=== PATIENT | male | born 1970 | race American Indian/Alaskan Native ===

== ENCOUNTER 2017-09-13 23:32 | Inpatient (IN) | payer BC, OTHER ==
[2017-09-14 00:23] LABS: Basophils % (Auto) 0.6 % (0.0-1.8); Eosinophils # (Auto) 0.1 K/mm3 (0.0-0.4); Eosinophils % (Auto) 1.4 % (0.0-4.3); Hemoglobin 13.2 gm/dl (11.8-15.2); Lymphocytes # (Auto) 0.5 K/mm3 (1.2-5.4); Lymphocytes % (Auto) 7.4 % (13.4-35.0); Mean Corpuscular HGB Conc 33 % (32-34); Mean Corpuscular Hemoglobin 31 pg (28-32); Mean Corpuscular Volume 94 fl (84-94); Monocytes % (Auto) 15.7 % (0.0-7.3); Platelet Count 185 K/mm3 (140-440); Red Blood Count 4.27 M/mm3 (3.65-5.03); Red Cell Distribution Width 13.4 % (13.2-15.2)
[2017-09-14 00:46] LABS: Alanine Aminotransferase 31 units/L (7-56); Albumin 3.9 g/dL (3.9-5); BUN/Creatinine Ratio 11; Blood Urea Nitrogen 12 mg/dL (9-20); Calcium 8.2 mg/dL (8.4-10.2); Hemolysis Index 9
--- NOTE | 2017-09-14 01:31 | XRay Report ---
FINAL REPORT EXAM: XR CHEST ROUTINE 2V HISTORY: cough and congestion TECHNIQUE: 2 views of the chest. PRIORS: None. FINDINGS: The cardiomediastinal silhouette appears normal. The lungs are clear. The bones and soft tissues are unremarkable. IMPRESSION: No evidence of acute cardiopulmonary disease
--- NOTE | 2017-09-14 01:36 | Cat Scan Report ---
FINAL REPORT EXAM: CT HEAD/BRAIN WO CON HISTORY: SEIZURE TECHNIQUE: CT was performed from the foramen magnum through the vertex in the axial plane without the use of intravenous contrast. PRIORS: None. FINDINGS: The mccarthy/white matter attenuation pattern is normal. There is no mass lesion or mass effect. There are no abnormal extra-axial fluid collections. There is no evidence of acute intracranial hemorrhage or infarct. The ventricles are of normal size and configuration. The skull and orbits are unremarkable. There is mild patchy mucosal thickening in the bilateral ethmoid air cells.. IMPRESSION: Normal CT of the head.
[2017-09-14] MEDS ORDERED: KEPPRA 1,000 MG/NS 0.75% 100ML 1,000 MG/100 ML BAG IV ONE (02:29)
[2017-09-14] MEDS ORDERED: TESSALON PERLES PO ONE (02:40)
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
[2017-09-14] MEDS ORDERED: ASPIRIN PO ONE (02:49)
[2017-09-14 02:58] LABS: Creatine Kinase MB 4.1 ng/mL (0.0-4.0)
[2017-09-14] MEDS ORDERED: SODIUM CHLORIDE FLUSH SYRINGE 10 ML IV PRN (05:54)
[2017-09-14] MEDS ORDERED: ZOFRAN IV PRN (05:54)
[2017-09-14] MEDS ORDERED: ATIVAN IV PRN (06:00)
--- NOTE | 2017-09-14 06:05 | History and Physical Report ---
History of Present Illness Date of examination: 09/14/17 History of present illness: 46-year-old man with a history of hypothyroidism, obesity, emergency room because while he was at home and at bedside reported that the son stated that he had a seizure and later a syncopal episode. He states he develop a cough productive of yellow phlegm, he was coughing so much in the emergency room he had a syncopal episode 2 for 2 minutes. Also complaining of chest pain has been ongoing over the last 1 month, located in the left chest, worse with cough, feels like someone hit him in the chest, intermittent for a few seconds, no radiation, intensity 5/10. Denies nausea vomiting, palpitation or diaphoresis, admits to shortness of breath Review of systems Constitutional: no weight loss, chills Ears, eyes, nose, mouth and throat: no nasal congestion, no nasal discharge, no sinus pressure, no vision change, no red eye. Neck: No neck pain or rigidity. Cardiovascular: no palpitations Respiratory:+ cough, shortness of breath Gastrointestinal: no abdominal pain, hematochezia Genitourinary : no dysuria, frequency , no hematuria Musculoskeletal: no joint swelling or muscle ache Integumentary: no rash, no pruritis Neurological: no parathesias, no numbness, no focal weakness Endocrine: no cold or heat intolerance, no polyuria or polydipsia Hematologic/Lymphatic: no easy bruising, no easy bleeding, no gland swelling Allergic/Immunologic: no urticaria, no angioedema. PAST MEDICAL HISTORY: Hypothyroidism, obesity PAST SURGICAL HISTORY: None SOCIAL HISTORY: Denies alcohol, tobacco, drugs FAMILY HISTORY: Hypertension Medications and Allergies Allergies Allergy/AdvReac Type Severity Reaction Status Date / Time No Known Allergies Allergy Verified 06/22/13 00:50 Home Medications Medication Instructions Recorded Confirmed Last Taken Type Ibuprofen [Motrin] 800 mg PO TID PRN #20 tablet 06/21/13 Unknown Rx Active Meds: Active Medications Acetaminophen (Tylenol) 650 mg PO Q4H PRN PRN Reason: Pain MILD(1-3)/Fever >100.5/GARAY Enoxaparin Sodium (Lovenox) 30 mg SUB-Q QDAY DALLIN Lorazepam (Ativan) 1 mg IV Q4H PRN PRN Reason: Seizures Ondansetron HCl (Zofran) 4 mg IV Q8H PRN PRN Reason: Nausea And Vomiting Sodium Chloride (Sodium Chloride Flush Syringe 10 Ml) 10 ml IV BID DALLIN Sodium Chloride (Sodium Chloride Flush Syringe 10 Ml) 10 ml IV PRN PRN PRN Reason: LINE FLUSH Exam - Physical Exam Narrative exam: Gen. appearance: Patient lying in bed, no apparent distress HEENT: Normocephalic, atraumatic, pupils equally round and reactive to light, extraocular movement intact, and no sclericterus,. No JVD or thyromegaly or nodule,neck supple, no carotid bruit ,mucous membranes moist, no exudate or erythema Heart: S1, S2, regular rate and rhythm Lungs: Clear to auscultation bilaterally, breathing comfortable Abdomen: Positive bowel sounds, nontender, nondistended, no organomegaly Extremity: No edema, cyanosis, clubbing Skin: No rash, nodules, warm, dry Neuro: Oriented 3, cranial nerves II-12 intact, speech is fluent, motor and sensory intact - Constitutional Vitals: Temp Pulse Resp BP Pulse Ox 98.5 F 113 H 20 151/88 94 09/13/17 23:33 09/13/17 23:33 09/14/17 01:47 09/13/17 23:33 09/14/17 01:47 Results - Labs CBC & Chem 7: 09/14/17 00:10 09/14/17 00:10 Labs: Abnormal lab results 09/14/17 09/14/17 09/14/17 Range/Units 00:10 00:10 02:29 Lymph % (Auto) 7.4 L (13.4-35.0) % [place] % (Auto) 15.7 H (0.0-7.3) % Lymph # 0.5 L (1.2-5.4) K/mm3 [place] # 1.0 H (0.0-0.8) K/mm3 Seg Neutrophils % 74.9 H (40.0-70.0) % D-Dimer (0-234) ng/mlDDU Chloride 96.0 L (98-107) mmol/L Carbon Dioxide 31 H (22-30) mmol/L Glucose 142 H (75-100) mg/dL Calcium 8.2 L (8.4-10.2) mg/dL Total Creatine Kinase 417 H (55-170) units/L CK-MB (CK-2) 4.1 H (0.0-4.0) ng/mL 09/14/17 Range/Units 04:14 Lymph % (Auto) (13.4-35.0) % [place] % (Auto) (0.0-7.3) % Lymph # (1.2-5.4) K/mm3 [place] # (0.0-0.8) K/mm3 Seg Neutrophils % (40.0-70.0) % D-Dimer 259.63 H (0-234) ng/mlDDU Chloride (98-107) mmol/L Carbon Dioxide (22-30) mmol/L Glucose (75-100) mg/dL Calcium (8.4-10.2) mg/dL Total Creatine Kinase (55-170) units/L CK-MB (CK-2) (0.0-4.0) ng/mL - Imaging and Cardiology EKG: image reviewed Chest x-ray: image reviewed CT Scan - head: report reviewed Assessment and Plan Assessment Syncope Chest pain Seizure Hypothyroidism Obesity Plan Admit to medicine Check cardiac enzymes, d-dimer positive, check CT chest, rule out PE Will need stress test if CT chest is negative IV Ativan for seizure DVT prophylaxis
[2017-09-14] MEDS: LOVENOX SUB-Q SCH (09:58)
[2017-09-14] MEDS: SODIUM CHLORIDE FLUSH SYRINGE 10 ML IV SCH (09:59)
--- NOTE | 2017-09-14 11:00 | Cat Scan Report ---
CTA CHEST: HISTORY: chest pain. COMPARISON: none. TECHNIQUE: Helical CT in 1.25mm intervals following IV contrast. Pulmonary embolus protocol. Sagittal and coronal reformatted images. No three-dimensional postprocessing images were available at the time of dictation. FINDINGS: Contrast bolus is satisfactory. No pulmonary embolus is identified. Thyroid gland: Normal. Tracheobronchial tree: Normal. Esophagus: Normal. Heart: Normal. Pericardium: Normal. Mediastinum: Normal. Lung Shaikh: normal. Pleural Spaces: Normal. Musculoskeletal: Normal. IMPRESSION: No evidence for pulmonary embolus. Unremarkable CT chest with contrast.
[2017-09-14 11:31] LABS: Creatine Kinase MB 5.7 ng/mL (0.0-4.0)
[2017-09-14 12:25] LABS: Creatine Kinase MB 5.7 ng/mL (0.0-4.0)
--- NOTE | 2017-09-14 16:04 | Event Note ---
Date: 09/14/17
[2017-09-14] MEDS: TYLENOL PO PRN (20:23)
[2017-09-15 06:18] LABS: Hematocrit 42.3 % (35.5-45.6); Hemoglobin 13.6 gm/dl (11.8-15.2); Mean Corpuscular HGB Conc 32 % (32-34); Mean Corpuscular Hemoglobin 31 pg (28-32); Mean Corpuscular Volume 95 fl (84-94); Platelet Count 184 K/mm3 (140-440); Red Blood Count 4.44 M/mm3 (3.65-5.03); Red Cell Distribution Width 13.5 % (13.2-15.2)
[2017-09-15 06:46] LABS: BUN/Creatinine Ratio 10; Blood Urea Nitrogen 10 mg/dL (9-20); Calcium 8.3 mg/dL (8.4-10.2); Hemolysis Index 11
[2017-09-15 08:22] LABS: Band Neutrophils # (Manual) 0.2 K/mm3; Basophils % (Manual) 0 % (0.0-1.8); Eosinophils % (Manual) 0 % (0.0-4.3); Platelet Estimate Consistent w Auto; RBC Morphology Normal; Total Cells Counted 100
[2017-09-15] MEDS: LOVENOX SUB-Q SCH (15:00)
[2017-09-15] MEDS: SODIUM CHLORIDE FLUSH SYRINGE 10 ML IV SCH ×3 (15:07→21:10)
--- NOTE | 2017-09-16 07:36 | Progress Note ---
Assessment and Plan The high probability of a clinically significant, sudden or life threatening deterioration of the [Pulmonary, cadiac, renal] system(s) required my full and direct attention, intervention and personal management. The aggregate critical care time was [35] minutes. This time is in addition to time spent performing reported procedures but includes the following: [x] Data Review and interpretation [x] Patient assessment and monitoring of vital signs [x] Documentation [x] Medication orders and management - Patient Problems (1) Acute respiratory failure with hypercapnia Current Visit: Yes Status: Acute Plan to address problem: Patient initiated on IV Steroids Bipap IV abx and Duonebs (2) COPD with exacerbation Current Visit: Yes Status: Acute Plan to address problem: As above (3) HIEN (obstructive sleep apnea) Current Visit: Yes Status: Chronic Plan to address problem: Eval as outpatient (4) Morbid obesity Current Visit: Yes Status: Chronic (5) DVT prophylaxis Current Visit: Yes Status: Acute Plan to address problem: On Heparin Subjective Date of service: 09/15/17 (Late entry) Principal diagnosis: Acute respiratory failure with Hypercapnia Interval history: Patient became very somnolent High CO2 levels on ABG Objective - Constitutional Vitals: Vital Signs - 12hr 09/15/17 09/15/17 09/15/17 19:47 20:00 20:30 Temperature 100.8 F H Pulse Rate 95 H 97 H 94 H Pulse Rate [ Apical] Respiratory 24 22 21 Rate Blood Pressure 89/50 118/66 94/56 O2 Sat by Pulse 100 100 99 Oximetry 09/15/17 09/15/17 09/15/17 21:00 21:28 21:29 Temperature Pulse Rate 93 H 73 73 Pulse Rate [ Apical] Respiratory 19 Rate Blood Pressure 113/63 O2 Sat by Pulse 100 Oximetry 09/15/17 09/15/17 09/15/17 21:30 22:00 22:06 Temperature Pulse Rate 95 H 91 H 88 Pulse Rate [ Apical] Respiratory 24 21 20 Rate Blood Pressure 133/86 93/58 93/58 O2 Sat by Pulse 100 96 95 Oximetry 09/15/17 09/15/17 09/15/17 22:30 23:00 23:13 Temperature Pulse Rate 96 H 93 H 66 Pulse Rate [ Apical] Respiratory 20 19 20 Rate Blood Pressure 108/55 119/65 119/65 O2 Sat by Pulse 94 99 92 Oximetry 09/15/17 09/16/17 09/16/17 23:30 00:00 00:30 Temperature 100.7 F H Pulse Rate 88 86 95 H Pulse Rate [ 73 Apical] Respiratory 22 19 18 Rate Blood Pressure 85/36 83/37 103/67 O2 Sat by Pulse 87 90 93 Oximetry 09/16/17 09/16/17 09/16/17 01:00 01:30 02:00 Temperature Pulse Rate 93 H 98 H 99 H Pulse Rate [ Apical] Respiratory 18 24 19 Rate Blood Pressure 98/56 116/68 122/75 O2 Sat by Pulse 95 91 93 Oximetry 09/16/17 09/16/17 09/16/17 02:30 03:00 03:30 Temperature Pulse Rate 95 H 95 H 94 H Pulse Rate [ Apical] Respiratory 18 19 19 Rate Blood Pressure 119/69 112/70 108/61 O2 Sat by Pulse 93 95 95 Oximetry 09/16/17 09/16/17 09/16/17 03:33 04:00 04:30 Temperature 99.2 F Pulse Rate 93 H 92 H 88 Pulse Rate [ 93 H Apical] Respiratory 19 19 18 Rate Blood Pressure 112/70 115/68 114/64 O2 Sat by Pulse 95 98 95 Oximetry 09/16/17 09/16/17 09/16/17 05:00 05:30 06:00 Temperature Pulse Rate 91 H 91 H 91 H Pulse Rate [ 90 Apical] Respiratory 18 18 18 Rate Blood Pressure 110/55 109/62 O2 Sat by Pulse 95 95 98 Oximetry General appearance: Present: no acute distress, well-nourished - EENT Eyes: PERRL, EOM intact ENT: hearing intact, clear oral mucosa Ears: bilateral: normal - Neck Neck: supple, normal ROM - Respiratory Respiratory effort: normal Respiratory: bilateral: CTA - Breasts Breasts: normal - Cardiovascular Rhythm: regular Heart Sounds: Present: S1 & S2. Absent: gallop, rub Extremities: pulses intact, No edema, normal color, Full ROM - Gastrointestinal General gastrointestinal: Present: soft, non-tender, non-distended, normal bowel sounds - Genitourinary Male genitourinary: normal - Integumentary Integumentary: clear, warm, dry - Musculoskeletal Musculoskeletal: 1, strength equal bilaterally - Neurologic Neurologic: moves all extremities - Psychiatric Psychiatric: memory intact, appropriate mood/affect, intact judgment & insight - Labs CBC & Chem 7: 09/15/17 05:09 09/15/17 05:09 Labs: Abnormal lab results 09/15/17 09/15/17 09/15/17 Range/Units 05:09 15:28 15:34 Monocytes % (Manual) 21.0 H (0.0-7.3) % Lymphocytes # (Manual) 1.0 L (1.2-5.4) K/mm3 Monocytes # (Manual) 1.3 H (0.0-0.8) K/mm3 POC ABG pH 7.193 L (7.35-7.45) POC ABG pCO2 92.3 H (35-45) POC ABG pO2 56 L (80-105) POC Glucose 159 H (70-105) 09/15/17 09/15/17 09/15/17 Range/Units 16:13 17:58 21:25 Monocytes % (Manual) (0.0-7.3) % Lymphocytes # (Manual) (1.2-5.4) K/mm3 Monocytes # (Manual) (0.0-0.8) K/mm3 POC ABG pH 7.241 L 7.257 L 7.288 L (7.35-7.45) POC ABG pCO2 78.2 H 74.5 H 71.4 H (35-45) POC ABG pO2 60 L 66 L (80-105) POC Glucose (70-105)
[2017-09-16 08:49] LABS: BUN/Creatinine Ratio 13; Blood Urea Nitrogen 15 mg/dL (9-20); Hemolysis Index 2
[2017-09-16] MEDS: LOVENOX SUB-Q SCH ×2 (09:08→22:45)
[2017-09-16] MEDS: SODIUM CHLORIDE FLUSH SYRINGE 10 ML IV SCH (09:09)
--- NOTE | 2017-09-16 09:12 | Progress Note ---
Assessment and Plan Assessment and plan: Acute respiratory failure with hypercapnea. He is on BIPAP. Pulm following. Sleep apnea. Now on BIPAP. Was on CPAP at home. Repeat ABG shows improvement.. Syncope. Obtain Echocardiogram Hypothyroidism. Continue Levothyroxine DVT prophylaxis with Lovenox. Full code status. History Interval history: Feels a little better, Less shortness of breath, Still on BIPAP Hungry-wants to eat Hospitalist Physical - Physical exam Narrative exam: General:Not in acute distress,morbidly obese, BIPAP on HEENT:Normocephalic, atraumatic Lungs: Bilateral rhonchi, decreased breath sounds Heart:S1 and S2 regular, no murmurs, rubs or gallop Abd: soft, non tender, non distended, normal bowel sounds Ext:Bilateral lower ext edema, no clubbing or cyanosis Neuro:Awake,alert,oriented x 3, moves all extremities, Psych:Normal mood - Constitutional Vitals: Temp Pulse Resp BP Pulse Ox 98.7 F 98 H 18 119/70 98 09/16/17 08:00 09/16/17 08:35 09/16/17 08:35 09/16/17 08:35 09/16/17 08:35 General appearance: Present: no acute distress Results - Labs CBC & Chem 7: 09/15/17 05:09 09/16/17 07:06 Labs: Laboratory Last Values WBC 6.0 K/mm3 (4.5-11.0) 09/15/17 05:09 RBC 4.44 M/mm3 (3.65-5.03) 09/15/17 05:09 Hgb 13.6 gm/dl (11.8-15.2) 09/15/17 05:09 Hct 42.3 % (35.5-45.6) 09/15/17 05:09 MCV 95 fl (84-94) H 09/15/17 05:09 MCH 31 pg (28-32) 09/15/17 05:09 MCHC 32 % (32-34) 09/15/17 05:09 RDW 13.5 % (13.2-15.2) 09/15/17 05:09 Plt Count 184 K/mm3 (140-440) 09/15/17 05:09 Lymph % (Auto) 7.4 % (13.4-35.0) L 09/14/17 00:10 Scott % (Auto) Community Marketing Manager 09/15/17 05:09 Eos % (Auto) 1.4 % (0.0-4.3) 09/14/17 00:10 Baso % (Auto) 0.6 % (0.0-1.8) 09/14/17 00:10 Lymph # 0.5 K/mm3 (1.2-5.4) L 09/14/17 00:10 Scott # 1.0 K/mm3 (0.0-0.8) H 09/14/17 00:10 Eos # 0.1 K/mm3 (0.0-0.4) 09/14/17 00:10 Baso # 0.0 K/mm3 (0.0-0.1) 09/14/17 00:10 Add Manual Diff Complete 09/15/17 05:09 Total Counted 100 09/15/17 05:09 Seg Neutrophils % 74.9 % (40.0-70.0) H 09/14/17 00:10 Seg Neuts % (Manual) 58.0 % (40.0-70.0) 09/15/17 05:09 Band Neutrophils % 4.0 % 09/15/17 05:09 Lymphocytes % (Manual) 17.0 % (13.4-35.0) 09/15/17 05:09 Reactive Lymphs % (Man) 0 % 09/15/17 05:09 Monocytes % (Manual) 21.0 % (0.0-7.3) H 09/15/17 05:09 Eosinophils % (Manual) 0 % (0.0-4.3) 09/15/17 05:09 Basophils % (Manual) 0 % (0.0-1.8) 09/15/17 05:09 Metamyelocytes % 0 % 09/15/17 05:09 Myelocytes % 0 % 09/15/17 05:09 Promyelocytes % 0 % 09/15/17 05:09 Blast Cells % 0 % 09/15/17 05:09 Nucleated RBC % Not Reportable 09/15/17 05:09 Seg Neutrophils # 4.6 K/mm3 (1.8-7.7) 09/14/17 00:10 Seg Neutrophils # Man 3.5 K/mm3 (1.8-7.7) 09/15/17 05:09 Band Neutrophils # 0.2 K/mm3 09/15/17 05:09 Lymphocytes # (Manual) 1.0 K/mm3 (1.2-5.4) L 09/15/17 05:09 Abs React Lymphs (Man) 0.0 K/mm3 09/15/17 05:09 Monocytes # (Manual) 1.3 K/mm3 (0.0-0.8) H 09/15/17 05:09 Eosinophils # (Manual) 0.0 K/mm3 (0.0-0.4) 09/15/17 05:09 Basophils # (Manual) 0.0 K/mm3 (0.0-0.1) 09/15/17 05:09 Metamyelocytes # 0.0 K/mm3 09/15/17 05:09 Myelocytes # 0.0 K/mm3 09/15/17 05:09 Promyelocytes # 0.0 K/mm3 09/15/17 05:09 Blast Cells # 0.0 K/mm3 09/15/17 05:09 WBC Morphology Not Reportable 09/15/17 05:09 Hypersegmented Neuts Not Reportable 09/15/17 05:09 Hyposegmented Neuts Not Reportable 09/15/17 05:09 Hypogranular Neuts Not Reportable 09/15/17 05:09 Smudge Cells Not Reportable 09/15/17 05:09 Toxic Granulation Not Reportable 09/15/17 05:09 Toxic Vacuolation Not Reportable 09/15/17 05:09 Dohle Bodies Not Reportable 09/15/17 05:09 Pelger-Huet Anomaly Not Reportable 09/15/17 05:09 Chely Rods Not Reportable 09/15/17 05:09 Platelet Estimate Consistent w auto 09/15/17 05:09 Clumped Platelets Not Reportable 09/15/17 05:09 Plt Clumps, EDTA Not Reportable 09/15/17 05:09 Large Platelets Not Reportable 09/15/17 05:09 Giant Platelets Not Reportable 09/15/17 05:09 Platelet Satelliting Not Reportable 09/15/17 05:09 Plt Morphology Comment Not Reportable 09/15/17 05:09 RBC Morphology Normal 09/15/17 05:09 Dimorphic RBCs Not Reportable 09/15/17 05:09 Polychromasia Not Reportable 09/15/17 05:09 Hypochromasia Not Reportable 09/15/17 05:09 Poikilocytosis Not Reportable 09/15/17 05:09 Anisocytosis Not Reportable 09/15/17 05:09 Microcytosis Not Reportable 09/15/17 05:09 Macrocytosis Not Reportable 09/15/17 05:09 Spherocytes Not Reportable 09/15/17 05:09 Pappenheimer Bodies Not Reportable 09/15/17 05:09 Sickle Cells Not Reportable 09/15/17 05:09 Target Cells Not Reportable 09/15/17 05:09 Tear Drop Cells Not Reportable 09/15/17 05:09 Ovalocytes Not Reportable 09/15/17 05:09 Helmet Cells Not Reportable 09/15/17 05:09 [place] Bodies Not Reportable 09/15/17 05:09 [place] Rings Not Reportable 09/15/17 05:09 [place] Cells Not Reportable 09/15/17 05:09 Bite Cells Not Reportable 09/15/17 05:09 Crenated Cell Not Reportable 09/15/17 05:09 Elliptocytes Not Reportable 09/15/17 05:09 Acanthocytes (Spur) Not Reportable 09/15/17 05:09 Rouleaux Not Reportable 09/15/17 05:09 Hemoglobin C Crystals Not Reportable 09/15/17 05:09 Schistocytes Not Reportable 09/15/17 05:09 Malaria parasites Not Reportable 09/15/17 05:09 Curt Bodies Not Reportable 09/15/17 05:09 Hem Pathologist Commnt No 09/15/17 05:09 D-Dimer 259.63 ng/mlDDU (0-234) H 09/14/17 04:14 POC ABG pH 7.366 (7.35-7.45) 09/16/17 08:32 POC ABG pCO2 60.4 (35-45) H 09/16/17 08:32 POC ABG pO2 79 (80-105) L 09/16/17 08:32 POC ABG HCO3 34.6 09/16/17 08:32 POC ABG Total CO2 36 09/16/17 08:32 POC ABG O2 Sat 95 09/16/17 08:32 POC ABG Base Excess 9 09/16/17 08:32 FiO2 60 % 09/16/17 08:32 Sodium 136 mmol/L (137-145) L 09/16/17 07:06 Potassium 4.3 mmol/L (3.6-5.0) 09/16/17 07:06 Chloride 91.9 mmol/L (98-107) L 09/16/17 07:06 Carbon Dioxide 35 mmol/L (22-30) H 09/16/17 07:06 Anion Gap 13 mmol/L 09/16/17 07:06 BUN 15 mg/dL (9-20) 09/16/17 07:06 Creatinine 1.2 mg/dL (0.8-1.5) 09/16/17 07:06 Estimated GFR > 60 ml/min 09/16/17 07:06 BUN/Creatinine Ratio 13 % 09/16/17 07:06 Glucose 114 mg/dL (75-100) H 09/16/17 07:06 POC Glucose 159 (70-105) H 09/15/17 15:34 Calcium 8.0 mg/dL (8.4-10.2) L 09/16/17 07:06 Magnesium 1.70 mg/dL (1.7-2.3) 09/14/17 02:30 Total Bilirubin 0.30 mg/dL (0.1-1.2) 09/14/17 00:10 AST 23 units/L (5-40) 09/14/17 00:10 ALT 31 units/L (7-56) 09/14/17 00:10 Alkaline Phosphatase 67 units/L (35-129) 09/14/17 00:10 Total Creatine Kinase 769 units/L (55-170) H 09/14/17 11:53 CK-MB (CK-2) 5.7 ng/mL (0.0-4.0) H 09/14/17 11:53 CK-MB (CK-2) Rel Index 0.7 (0-4) 09/14/17 11:53 Troponin T < 0.010 ng/mL (0.00-0.029) 09/14/17 23:38 Total Protein 6.8 g/dL (6.3-8.2) 09/14/17 00:10 Albumin 3.9 g/dL (3.9-5) 09/14/17 00:10 Albumin/Globulin Ratio 1.3 % 09/14/17 00:10
--- NOTE | 2017-09-16 09:57 | Consultation ---
History of Present Illness Consult date: 09/16/17 Requesting physician: MODESTA POMPA Reason for consult: obstructive sleep apnea, other (Hypercapnic respiratory failure) History of present illness: 46 y/o male, originally admitted for syncope and seizure, developed hypercapnic respiratory failure on yesterday requiring continous bipap therapy and transfer to ICU. Patient is awake and alert now. Admits to underlying diagnosis of HIEN/ OHS and is readily noncompliant with therapy at home. Family at bedside. Vitals stable. Past History Past Medical History: other (HIEN/OHS) Past Surgical History: No surgical history Social history: no significant social history Family history: no significant family history Medications and Allergies Allergies Allergy/AdvReac Type Severity Reaction Status Date / Time No Known Allergies Allergy Verified 06/22/13 00:50 Home Medications Medication Instructions Recorded Confirmed Last Taken Type No Known Home Medications [No 09/14/17 09/14/17 Unknown History Reported Home Medications] Active Meds: Active Medications Acetaminophen (Tylenol) 650 mg PO Q4H PRN PRN Reason: Pain MILD(1-3)/Fever >100.5/GARAY Last Admin: 09/14/17 20:23 Dose: 650 mg Enoxaparin Sodium (Lovenox) 40 mg SUB-Q QDAY [facility] Last Admin: 09/16/17 09:08 Dose: 40 mg Ondansetron HCl (Zofran) 4 mg IV Q8H PRN PRN Reason: Nausea And Vomiting Sodium Chloride (Sodium Chloride Flush Syringe 10 Ml) 10 ml IV BID [facility] Last Admin: 09/16/17 09:09 Dose: 10 ml Sodium Chloride (Sodium Chloride Flush Syringe 10 Ml) 10 ml IV PRN PRN PRN Reason: LINE FLUSH Review of Systems All systems: negative Physical Examination Vital signs: Vital Signs Temp Pulse Resp BP Pulse Ox 98.5 F 113 H 18 151/88 94 09/13/17 23:33 09/13/17 23:33 09/13/17 23:33 09/13/17 23:33 09/13/17 23:33 General appearance: no acute distress, alert Neck: supple (large in circumference) Effort: normal Ascultation: Bilateral: diminished breath sounds Percussion: Bilateral: not dull Tactile fremitus: Bilateral: normal Cardiovascular: regular rate and rhythm Gastrointestinal: normoactive bowel sounds, other (obese) Extremities: anasarca Musculoskeletal: no deformities normal mental status, non-focal exam mood appropriate Results - Laboratory Findings CBC and BMP: 09/15/17 05:09 09/16/17 07:06 ABG POC ABG pH 7.366 (7.35-7.45) 09/16/17 08:32 POC ABG pCO2 60.4 (35-45) H 09/16/17 08:32 POC ABG pO2 79 (80-105) L 09/16/17 08:32 POC ABG HCO3 34.6 09/16/17 08:32 POC ABG Total CO2 36 09/16/17 08:32 POC ABG O2 Sat 95 09/16/17 08:32 PT/INR, D-dimer D-Dimer 259.63 ng/mlDDU (0-234) H 09/14/17 04:14 Abnormal lab findings: Abnormal Labs 09/14/17 09/14/17 09/14/17 00:10 00:10 02:29 MCV Lymph % (Auto) 7.4 L [place] % (Auto) 15.7 H Lymph # 0.5 L [place] # 1.0 H Seg Neutrophils % 74.9 H Monocytes % (Manual) Lymphocytes # (Manual) Monocytes # (Manual) D-Dimer POC ABG pH POC ABG pCO2 POC ABG pO2 Sodium Chloride 96.0 L Carbon Dioxide 31 H Glucose 142 H POC Glucose Calcium 8.2 L Total Creatine Kinase 417 H CK-MB (CK-2) 4.1 H 09/14/17 09/14/17 09/14/17 04:14 08:26 11:53 MCV Lymph % (Auto) [place] % (Auto) Lymph # [place] # Seg Neutrophils % Monocytes % (Manual) Lymphocytes # (Manual) Monocytes # (Manual) D-Dimer 259.63 H POC ABG pH POC ABG pCO2 POC ABG pO2 Sodium Chloride Carbon Dioxide Glucose POC Glucose Calcium Total Creatine Kinase 764 H 769 H CK-MB (CK-2) 5.7 H 5.7 H 09/15/17 09/15/17 09/15/17 05:09 05:09 15:28 MCV 95 H Lymph % (Auto) [place] % (Auto) Lymph # [place] # Seg Neutrophils % Monocytes % (Manual) 21.0 H Lymphocytes # (Manual) 1.0 L Monocytes # (Manual) 1.3 H D-Dimer POC ABG pH 7.193 L POC ABG pCO2 92.3 H POC ABG pO2 56 L Sodium Chloride 94.9 L Carbon Dioxide 31 H Glucose 154 H POC Glucose Calcium 8.3 L Total Creatine Kinase CK-MB (CK-2) 09/15/17 09/15/17 09/15/17 15:34 16:13 17:58 MCV Lymph % (Auto) [place] % (Auto) Lymph # [place] # Seg Neutrophils % Monocytes % (Manual) Lymphocytes # (Manual) Monocytes # (Manual) D-Dimer POC ABG pH 7.241 L 7.257 L POC ABG pCO2 78.2 H 74.5 H POC ABG pO2 60 L 66 L Sodium Chloride Carbon Dioxide Glucose POC Glucose 159 H Calcium Total Creatine Kinase CK-MB (CK-2) 09/15/17 09/16/17 09/16/17 21:25 07:06 08:32 MCV Lymph % (Auto) [place] % (Auto) Lymph # [place] # Seg Neutrophils % Monocytes % (Manual) Lymphocytes # (Manual) Monocytes # (Manual) D-Dimer POC ABG pH 7.288 L POC ABG pCO2 71.4 H 60.4 H POC ABG pO2 79 L Sodium 136 L Chloride 91.9 L Carbon Dioxide 35 H Glucose 114 H POC Glucose Calcium 8.0 L Total Creatine Kinase CK-MB (CK-2) - Diagnostic Findings Chest x-ray: image reviewed CT scan - chest: image reviewed Assessment and Plan 46 y/o, morbidly obese male admitted with syncope, transitioned to ICU secondary to hypercapnic respiratory failure. 1. PRN and QHS bipap therapy 2. Ok with giving patient a break now 3. Suggest checking echo to evaluate right sided pressures 4. Will check BNP 5. Weight loss education given. 6. Will watch in ICU for few hours. Was on NC at 3 now up to 5. Unable to get adequate readings on pulse ox. May need to keep again overnight but will reassess.
[2017-09-16 16:30] LABS: Amphetamine Screen,Urine PRESUMPTIVE NEGATIVE; Benzodiazepines Screen,Urine PRESUMPTIVE NEGATIVE; Cannabinoid Screen,Urine PRESUMPTIVE NEGATIVE; Cocaine Screen,Urine PRESUMPTIVE NEGATIVE; Methadone Screen,Urine PRESUMPTIVE NEGATIVE; Opiate Screen,Urine PRESUMPTIVE NEGATIVE
[2017-09-17 04:54] LABS: Hematocrit 39.6 % (35.5-45.6); Hemoglobin 13.3 gm/dl (11.8-15.2); Mean Corpuscular HGB Conc 34 % (32-34); Mean Corpuscular Hemoglobin 31 pg (28-32); Mean Corpuscular Volume 93 fl (84-94); Platelet Count 169 K/mm3 (140-440); Red Blood Count 4.24 M/mm3 (3.65-5.03); Red Cell Distribution Width 13.3 % (13.2-15.2)
[2017-09-17] MEDS: SODIUM CHLORIDE FLUSH SYRINGE 10 ML IV SCH ×2 (05:13→10:53)
[2017-09-17 05:15] LABS: BUN/Creatinine Ratio 13; Blood Urea Nitrogen 16 mg/dL (9-20); Calcium 8.2 mg/dL (8.4-10.2); Hemolysis Index 20
--- NOTE | 2017-09-17 09:52 | Progress Note ---
Assessment and Plan Assessment and plan: Acute respiratory failure with hypercapnea. He was on BIPAP. Off BIPAP, now on Oxygen by NC at 3l/min Pulm following. Sleep apnea. Was on CPAP at home. Repeat ABG shows improvement.. Syncope. Obtain Echocardiogram Seizures. Patient had seizures. Will get MRI Brain Hypothyroidism. Will obtain home med list. DVT prophylaxis with Lovenox. Full code status. Patient stable for Telemetry History Interval history: Feels much better, Less shortness of breath, Off BIPAP Hospitalist Physical - Physical exam Narrative exam: General:Not in acute distress,morbidly obese, Off BIPAP HEENT:Normocephalic, atraumatic Lungs: Bilateral rhonchi, decreased breath sounds Heart:S1 and S2 regular, no murmurs, rubs or gallop Abd: soft, non tender, non distended, normal bowel sounds Ext:Bilateral lower ext edema, no clubbing or cyanosis Neuro:Awake,alert,oriented x 3, moves all extremities, Psych:Normal mood - Constitutional Vitals: Temp Pulse Resp BP Pulse Ox 97.8 F 96 H 14 130/67 93 09/17/17 08:00 09/17/17 08:53 09/17/17 08:30 09/17/17 08:30 09/17/17 09:23 General appearance: Present: no acute distress Results - Labs CBC & Chem 7: 09/17/17 03:53 09/17/17 03:53 Labs: Laboratory Last Values WBC 6.6 K/mm3 (4.5-11.0) 09/17/17 03:53 RBC 4.24 M/mm3 (3.65-5.03) 09/17/17 03:53 Hgb 13.3 gm/dl (11.8-15.2) 09/17/17 03:53 Hct 39.6 % (35.5-45.6) 09/17/17 03:53 MCV 93 fl (84-94) 09/17/17 03:53 MCH 31 pg (28-32) 09/17/17 03:53 MCHC 34 % (32-34) 09/17/17 03:53 RDW 13.3 % (13.2-15.2) 09/17/17 03:53 Plt Count 169 K/mm3 (140-440) 09/17/17 03:53 Lymph % (Auto) 7.4 % (13.4-35.0) L 09/14/17 00:10 [place] % (Auto) Enterprise Sales Executive 09/15/17 05:09 Eos % (Auto) 1.4 % (0.0-4.3) 09/14/17 00:10 Baso % (Auto) 0.6 % (0.0-1.8) 09/14/17 00:10 Lymph # 0.5 K/mm3 (1.2-5.4) L 09/14/17 00:10 [place] # 1.0 K/mm3 (0.0-0.8) H 09/14/17 00:10 Eos # 0.1 K/mm3 (0.0-0.4) 09/14/17 00:10 Baso # 0.0 K/mm3 (0.0-0.1) 09/14/17 00:10 Add Manual Diff Complete 09/15/17 05:09 Total Counted 100 09/15/17 05:09 Seg Neutrophils % 74.9 % (40.0-70.0) H 09/14/17 00:10 Seg Neuts % (Manual) 58.0 % (40.0-70.0) 09/15/17 05:09 Band Neutrophils % 4.0 % 09/15/17 05:09 Lymphocytes % (Manual) 17.0 % (13.4-35.0) 09/15/17 05:09 Reactive Lymphs % (Man) 0 % 09/15/17 05:09 Monocytes % (Manual) 21.0 % (0.0-7.3) H 09/15/17 05:09 Eosinophils % (Manual) 0 % (0.0-4.3) 09/15/17 05:09 Basophils % (Manual) 0 % (0.0-1.8) 09/15/17 05:09 Metamyelocytes % 0 % 09/15/17 05:09 Myelocytes % 0 % 09/15/17 05:09 Promyelocytes % 0 % 09/15/17 05:09 Blast Cells % 0 % 09/15/17 05:09 Nucleated RBC % Not Reportable 09/15/17 05:09 Seg Neutrophils # 4.6 K/mm3 (1.8-7.7) 09/14/17 00:10 Seg Neutrophils # Man 3.5 K/mm3 (1.8-7.7) 09/15/17 05:09 Band Neutrophils # 0.2 K/mm3 09/15/17 05:09 Lymphocytes # (Manual) 1.0 K/mm3 (1.2-5.4) L 09/15/17 05:09 Abs React Lymphs (Man) 0.0 K/mm3 09/15/17 05:09 Monocytes # (Manual) 1.3 K/mm3 (0.0-0.8) H 09/15/17 05:09 Eosinophils # (Manual) 0.0 K/mm3 (0.0-0.4) 09/15/17 05:09 Basophils # (Manual) 0.0 K/mm3 (0.0-0.1) 09/15/17 05:09 Metamyelocytes # 0.0 K/mm3 09/15/17 05:09 Myelocytes # 0.0 K/mm3 09/15/17 05:09 Promyelocytes # 0.0 K/mm3 09/15/17 05:09 Blast Cells # 0.0 K/mm3 09/15/17 05:09 WBC Morphology Not Reportable 09/15/17 05:09 Hypersegmented Neuts Not Reportable 09/15/17 05:09 Hyposegmented Neuts Not Reportable 09/15/17 05:09 Hypogranular Neuts Not Reportable 09/15/17 05:09 Smudge Cells Not Reportable 09/15/17 05:09 Toxic Granulation Not Reportable 09/15/17 05:09 Toxic Vacuolation Not Reportable 09/15/17 05:09 Dohle Bodies Not Reportable 09/15/17 05:09 Pelger-Huet Anomaly Not Reportable 09/15/17 05:09 Chely Rods Not Reportable 09/15/17 05:09 Platelet Estimate Consistent w auto 09/15/17 05:09 Clumped Platelets Not Reportable 09/15/17 05:09 Plt Clumps, EDTA Not Reportable 09/15/17 05:09 Large Platelets Not Reportable 09/15/17 05:09 Giant Platelets Not Reportable 09/15/17 05:09 Platelet Satelliting Not Reportable 09/15/17 05:09 Plt Morphology Comment Not Reportable 09/15/17 05:09 RBC Morphology Normal 09/15/17 05:09 Dimorphic RBCs Not Reportable 09/15/17 05:09 Polychromasia Not Reportable 09/15/17 05:09 Hypochromasia Not Reportable 09/15/17 05:09 Poikilocytosis Not Reportable 09/15/17 05:09 Anisocytosis Not Reportable 09/15/17 05:09 Microcytosis Not Reportable 09/15/17 05:09 Macrocytosis Not Reportable 09/15/17 05:09 Spherocytes Not Reportable 09/15/17 05:09 Pappenheimer Bodies Not Reportable 09/15/17 05:09 Sickle Cells Not Reportable 09/15/17 05:09 Target Cells Not Reportable 09/15/17 05:09 Tear Drop Cells Not Reportable 09/15/17 05:09 Ovalocytes Not Reportable 09/15/17 05:09 Helmet Cells Not Reportable 09/15/17 05:09 [place] Bodies Not Reportable 09/15/17 05:09 [place] Rings Not Reportable 09/15/17 05:09 [place] Cells Not Reportable 09/15/17 05:09 Bite Cells Not Reportable 09/15/17 05:09 Crenated Cell Not Reportable 09/15/17 05:09 Elliptocytes Not Reportable 09/15/17 05:09 Acanthocytes (Spur) Not Reportable 09/15/17 05:09 Rouleaux Not Reportable 09/15/17 05:09 Hemoglobin C Crystals Not Reportable 09/15/17 05:09 Schistocytes Not Reportable 09/15/17 05:09 Malaria parasites Not Reportable 09/15/17 05:09 Curt Bodies Not Reportable 09/15/17 05:09 Hem Pathologist Commnt No 09/15/17 05:09 D-Dimer 259.63 ng/mlDDU (0-234) H 09/14/17 04:14 POC ABG pH 7.366 (7.35-7.45) 09/16/17 08:32 POC ABG pCO2 60.4 (35-45) H 09/16/17 08:32 POC ABG pO2 79 (80-105) L 09/16/17 08:32 POC ABG HCO3 34.6 09/16/17 08:32 POC ABG Total CO2 36 09/16/17 08:32 POC ABG O2 Sat 95 09/16/17 08:32 POC ABG Base Excess 9 09/16/17 08:32 FiO2 60 % 09/16/17 08:32 Sodium 136 mmol/L (137-145) L 09/17/17 03:53 Potassium 4.8 mmol/L (3.6-5.0) 09/17/17 03:53 Chloride 92.8 mmol/L (98-107) L 09/17/17 03:53 Carbon Dioxide 35 mmol/L (22-30) H 09/17/17 03:53 Anion Gap 13 mmol/L 09/17/17 03:53 BUN 16 mg/dL (9-20) 09/17/17 03:53 Creatinine 1.2 mg/dL (0.8-1.5) 09/17/17 03:53 Estimated GFR > 60 ml/min 09/17/17 03:53 BUN/Creatinine Ratio 13 % 09/17/17 03:53 Glucose 101 mg/dL (75-100) H 09/17/17 03:53 POC Glucose 159 (70-105) H 09/15/17 15:34 Calcium 8.2 mg/dL (8.4-10.2) L 09/17/17 03:53 Magnesium 1.70 mg/dL (1.7-2.3) 09/14/17 02:30 Total Bilirubin 0.30 mg/dL (0.1-1.2) 09/14/17 00:10 AST 23 units/L (5-40) 09/14/17 00:10 ALT 31 units/L (7-56) 09/14/17 00:10 Alkaline Phosphatase 67 units/L (35-129) 09/14/17 00:10 Total Creatine Kinase 769 units/L (55-170) H 09/14/17 11:53 CK-MB (CK-2) 5.7 ng/mL (0.0-4.0) H 09/14/17 11:53 CK-MB (CK-2) Rel Index 0.7 (0-4) 09/14/17 11:53 Troponin T < 0.010 ng/mL (0.00-0.029) 09/14/17 23:38 NT-Pro-B Natriuret Pep 65.31 pg/mL (0-450) 09/16/17 07:06 Total Protein 6.8 g/dL (6.3-8.2) 09/14/17 00:10 Albumin 3.9 g/dL (3.9-5) 09/14/17 00:10 Albumin/Globulin Ratio 1.3 % 09/14/17 00:10 Urine Opiates Screen Presumptive negative 09/16/17 16:06 Urine Methadone Screen Presumptive negative 09/16/17 16:06 Ur Barbiturates Screen Presumptive negative 09/16/17 16:06 Ur Phencyclidine Scrn Presumptive negative 09/16/17 16:06 Ur Amphetamines Screen Presumptive negative 09/16/17 16:06 U Benzodiazepines Scrn Presumptive negative 09/16/17 16:06 Urine Cocaine Screen Presumptive negative 09/16/17 16:06 U Marijuana (THC) Screen Presumptive negative 09/16/17 16:06 Drugs of Abuse Note Disclamer 09/16/17 16:06
[2017-09-17] MEDS: LOVENOX SUB-Q SCH ×2 (10:53→22:53)
--- NOTE | 2017-09-17 12:04 | Progress Note ---
Assessment and Plan 46 y/o, morbidly obese male admitted with syncope, transitioned to ICU secondary to hypercapnic respiratory failure. 1. PRN and QHS bipap therapy 2. Weight loss 3. Will need trilogy machine as he will need multiple pressures 4. Stable for transfer to floor. Will continue to follow and follow up right sided pressures of echo if able to be obtained. Subjective Date of service: 09/17/17 Principal diagnosis: Acute respiratory failure with Hypercapnia Interval history: Better again today. Stable on 2-3 liters nasal cannula while awake. Wore Bipap last night. Objective Vital Signs - 12hr 09/17/17 09/17/17 09/17/17 00:08 00:30 00:33 Temperature Pulse Rate 95 H 94 H 95 H Respiratory 13 22 Rate Blood Pressure 137/85 119/83 123/78 O2 Sat by Pulse 92 97 97 Oximetry 09/17/17 09/17/17 09/17/17 01:00 01:30 01:57 Temperature Pulse Rate 89 92 H Respiratory 20 17 20 Rate Blood Pressure 123/78 137/92 O2 Sat by Pulse 99 93 94 Oximetry 09/17/17 09/17/17 09/17/17 02:00 02:30 03:00 Temperature Pulse Rate 86 91 H 90 Respiratory 18 18 19 Rate Blood Pressure 144/97 135/87 149/101 O2 Sat by Pulse 90 90 Oximetry 09/17/17 09/17/17 09/17/17 03:30 04:00 04:30 Temperature 98.7 F Pulse Rate 94 H 90 85 Respiratory 15 18 19 Rate Blood Pressure 125/64 139/80 136/74 O2 Sat by Pulse 95 95 94 Oximetry 09/17/17 09/17/17 09/17/17 05:00 05:30 05:44 Temperature Pulse Rate 88 78 78 Respiratory 19 18 21 Rate Blood Pressure 136/74 129/71 O2 Sat by Pulse 90 90 97 Oximetry 09/17/17 09/17/17 09/17/17 06:00 06:30 07:00 Temperature Pulse Rate 85 79 92 H Respiratory 23 21 15 Rate Blood Pressure 130/74 117/81 117/81 O2 Sat by Pulse 97 97 95 Oximetry 09/17/17 09/17/17 09/17/17 07:30 08:00 08:30 Temperature 97.8 F Pulse Rate 95 H 90 96 H Respiratory 17 18 14 Rate Blood Pressure 135/93 135/93 130/67 O2 Sat by Pulse 91 96 95 Oximetry 09/17/17 09/17/17 08:53 09:23 Temperature Pulse Rate 96 H Respiratory Rate Blood Pressure O2 Sat by Pulse 93 Oximetry Constitutional: no acute distress, alert Neck: supple (large in circumference) Effort: normal Ascultation: Bilateral: diminished breath sounds Percussion: Bilateral: not dull Tactile fremitus: Bilateral: normal Cardiovascular: regular rate and rhythm Gastrointestinal: normoactive bowel sounds, other (obese) Extremities: anasarca Neurologic: normal mental status, non-focal exam Psychiatric: mood appropriate CBC and BMP: 09/17/17 03:53 09/17/17 03:53 ABG, PT/INR, D-dimer: ABG POC ABG pH 7.366 (7.35-7.45) 09/16/17 08:32 POC ABG pCO2 60.4 (35-45) H 09/16/17 08:32 POC ABG pO2 79 (80-105) L 09/16/17 08:32 POC ABG HCO3 34.6 09/16/17 08:32 POC ABG Total CO2 36 09/16/17 08:32 POC ABG O2 Sat 95 09/16/17 08:32 PT/INR, D-dimer D-Dimer 259.63 ng/mlDDU (0-234) H 09/14/17 04:14 Abnormal lab findings: Abnormal Labs 09/14/17 09/14/17 09/14/17 00:10 00:10 02:29 MCV Lymph % (Auto) 7.4 L [place] % (Auto) 15.7 H Lymph # 0.5 L [place] # 1.0 H Seg Neutrophils % 74.9 H Monocytes % (Manual) Lymphocytes # (Manual) Monocytes # (Manual) D-Dimer POC ABG pH POC ABG pCO2 POC ABG pO2 Sodium Chloride 96.0 L Carbon Dioxide 31 H Glucose 142 H POC Glucose Calcium 8.2 L Total Creatine Kinase 417 H CK-MB (CK-2) 4.1 H 09/14/17 09/14/17 09/14/17 04:14 08:26 11:53 MCV Lymph % (Auto) [place] % (Auto) Lymph # [place] # Seg Neutrophils % Monocytes % (Manual) Lymphocytes # (Manual) Monocytes # (Manual) D-Dimer 259.63 H POC ABG pH POC ABG pCO2 POC ABG pO2 Sodium Chloride Carbon Dioxide Glucose POC Glucose Calcium Total Creatine Kinase 764 H 769 H CK-MB (CK-2) 5.7 H 5.7 H 09/15/17 09/15/17 09/15/17 05:09 05:09 15:28 MCV 95 H Lymph % (Auto) [place] % (Auto) Lymph # [place] # Seg Neutrophils % Monocytes % (Manual) 21.0 H Lymphocytes # (Manual) 1.0 L Monocytes # (Manual) 1.3 H D-Dimer POC ABG pH 7.193 L POC ABG pCO2 92.3 H POC ABG pO2 56 L Sodium Chloride 94.9 L Carbon Dioxide 31 H Glucose 154 H POC Glucose Calcium 8.3 L Total Creatine Kinase CK-MB (CK-2) 09/15/17 09/15/17 09/15/17 15:34 16:13 17:58 MCV Lymph % (Auto) [place] % (Auto) Lymph # [place] # Seg Neutrophils % Monocytes % (Manual) Lymphocytes # (Manual) Monocytes # (Manual) D-Dimer POC ABG pH 7.241 L 7.257 L POC ABG pCO2 78.2 H 74.5 H POC ABG pO2 60 L 66 L Sodium Chloride Carbon Dioxide Glucose POC Glucose 159 H Calcium Total Creatine Kinase CK-MB (CK-2) 09/15/17 09/16/17 09/16/17 21:25 07:06 08:32 MCV Lymph % (Auto) [place] % (Auto) Lymph # [place] # Seg Neutrophils % Monocytes % (Manual) Lymphocytes # (Manual) Monocytes # (Manual) D-Dimer POC ABG pH 7.288 L POC ABG pCO2 71.4 H 60.4 H POC ABG pO2 79 L Sodium 136 L Chloride 91.9 L Carbon Dioxide 35 H Glucose 114 H POC Glucose Calcium 8.0 L Total Creatine Kinase CK-MB (CK-2) 09/17/17 03:53 MCV Lymph % (Auto) [place] % (Auto) Lymph # [place] # Seg Neutrophils % Monocytes % (Manual) Lymphocytes # (Manual) Monocytes # (Manual) D-Dimer POC ABG pH POC ABG pCO2 POC ABG pO2 Sodium 136 L Chloride 92.8 L Carbon Dioxide 35 H Glucose 101 H POC Glucose Calcium 8.2 L Total Creatine Kinase CK-MB (CK-2)
[2017-09-17] MEDS ORDERED: PROVENTIL IH PRN (18:57)
--- NOTE | 2017-09-18 07:59 | Progress Note ---
Assessment and Plan 46 y/o, morbidly obese male admitted with syncope, transitioned to ICU secondary to hypercapnic respiratory failure now with systolic heart failure, unable to determine if pulmonary hypertension is present or not. 1. PRN and QHS bipap therapy 2. Weight loss 3. Will need trilogy machine as he will need multiple pressures, consult CM 4. Could benefit from left and right heart cath at some point. Had normal BNP but still feel patient would benefit from lasix therapy. 5. patient will also likely need oxygen at discharge. Will need six minute walk to assess this. Subjective Date of service: 09/18/17 Principal diagnosis: Acute respiratory failure with Hypercapnia Interval history: No acute events. Wore bipap again last night. Echo done but unable to comment on pulmonary hypertension. Objective Vital Signs - 12hr 09/17/17 09/17/17 09/17/17 20:30 22:00 22:35 Temperature Pulse Rate 89 Respiratory 16 20 Rate Blood Pressure O2 Sat by Pulse 91 94 97 Oximetry 09/18/17 09/18/17 09/18/17 00:42 01:50 04:20 Temperature 97.9 F 98.1 F Pulse Rate 76 99 H 85 Respiratory 18 Rate Blood Pressure 126/76 117/60 O2 Sat by Pulse 94 97 Oximetry Constitutional: no acute distress, alert Neck: supple (large in circumference) Effort: normal Ascultation: Bilateral: diminished breath sounds Percussion: Bilateral: not dull Tactile fremitus: Bilateral: normal Cardiovascular: regular rate and rhythm Gastrointestinal: normoactive bowel sounds, other (obese) Extremities: anasarca Neurologic: normal mental status, non-focal exam Psychiatric: mood appropriate CBC and BMP: 09/17/17 03:53 09/17/17 03:53 ABG, PT/INR, D-dimer: ABG POC ABG pH 7.366 (7.35-7.45) 09/16/17 08:32 POC ABG pCO2 60.4 (35-45) H 09/16/17 08:32 POC ABG pO2 79 (80-105) L 09/16/17 08:32 POC ABG HCO3 34.6 09/16/17 08:32 POC ABG Total CO2 36 09/16/17 08:32 POC ABG O2 Sat 95 09/16/17 08:32 PT/INR, D-dimer D-Dimer 259.63 ng/mlDDU (0-234) H 09/14/17 04:14 Abnormal lab findings: Abnormal Labs 09/14/17 09/14/17 09/14/17 00:10 00:10 02:29 MCV Lymph % (Auto) 7.4 L [place] % (Auto) 15.7 H Lymph # 0.5 L [place] # 1.0 H Seg Neutrophils % 74.9 H Monocytes % (Manual) Lymphocytes # (Manual) Monocytes # (Manual) D-Dimer POC ABG pH POC ABG pCO2 POC ABG pO2 Sodium Chloride 96.0 L Carbon Dioxide 31 H Glucose 142 H POC Glucose Calcium 8.2 L Total Creatine Kinase 417 H CK-MB (CK-2) 4.1 H 09/14/17 09/14/17 09/14/17 04:14 08:26 11:53 MCV Lymph % (Auto) [place] % (Auto) Lymph # [place] # Seg Neutrophils % Monocytes % (Manual) Lymphocytes # (Manual) Monocytes # (Manual) D-Dimer 259.63 H POC ABG pH POC ABG pCO2 POC ABG pO2 Sodium Chloride Carbon Dioxide Glucose POC Glucose Calcium Total Creatine Kinase 764 H 769 H CK-MB (CK-2) 5.7 H 5.7 H 09/15/17 09/15/17 09/15/17 05:09 05:09 15:28 MCV 95 H Lymph % (Auto) [place] % (Auto) Lymph # [place] # Seg Neutrophils % Monocytes % (Manual) 21.0 H Lymphocytes # (Manual) 1.0 L Monocytes # (Manual) 1.3 H D-Dimer POC ABG pH 7.193 L POC ABG pCO2 92.3 H POC ABG pO2 56 L Sodium Chloride 94.9 L Carbon Dioxide 31 H Glucose 154 H POC Glucose Calcium 8.3 L Total Creatine Kinase CK-MB (CK-2) 09/15/17 09/15/17 09/15/17 15:34 16:13 17:58 MCV Lymph % (Auto) [place] % (Auto) Lymph # [place] # Seg Neutrophils % Monocytes % (Manual) Lymphocytes # (Manual) Monocytes # (Manual) D-Dimer POC ABG pH 7.241 L 7.257 L POC ABG pCO2 78.2 H 74.5 H POC ABG pO2 60 L 66 L Sodium Chloride Carbon Dioxide Glucose POC Glucose 159 H Calcium Total Creatine Kinase CK-MB (CK-2) 09/15/17 09/16/17 09/16/17 21:25 07:06 08:32 MCV Lymph % (Auto) [place] % (Auto) Lymph # [place] # Seg Neutrophils % Monocytes % (Manual) Lymphocytes # (Manual) Monocytes # (Manual) D-Dimer POC ABG pH 7.288 L POC ABG pCO2 71.4 H 60.4 H POC ABG pO2 79 L Sodium 136 L Chloride 91.9 L Carbon Dioxide 35 H Glucose 114 H POC Glucose Calcium 8.0 L Total Creatine Kinase CK-MB (CK-2) 09/17/17 03:53 MCV Lymph % (Auto) [place] % (Auto) Lymph # [place] # Seg Neutrophils % Monocytes % (Manual) Lymphocytes # (Manual) Monocytes # (Manual) D-Dimer POC ABG pH POC ABG pCO2 POC ABG pO2 Sodium 136 L Chloride 92.8 L Carbon Dioxide 35 H Glucose 101 H POC Glucose Calcium 8.2 L Total Creatine Kinase CK-MB (CK-2)
[2017-09-18] MEDS: LOVENOX SUB-Q SCH ×2 (11:24→21:51)
--- NOTE | 2017-09-18 13:28 | Consultation ---
History of Present Illness Consult date: 09/18/17 Requesting physician: PAVAN MEIER Reason for Consult: Seizure. Chief complaint: Chest pain and seizure. History of present illness: 46-year-old right handed man with a history of hypothyroidism and obesity, presented to emergency room because while he was at home and at bedside reported that the son stated that he had a seizure and later a syncopal episode. He states he develop a cough productive of yellow phlegm, he was coughing so much in the emergency room he had a syncopal episode 2 for 2 minutes. Also complaining of chest pain has been ongoing over the last 1 month , located in the left chest, worse with cough, feels like someone hit him in the chest, intermittent for a few seconds, no radiation. He had first seizure like activities on Thursday. He denied aura, incontinency, bitten tongue or loss control of bowel. Seizures lasted minutes, then very quickly came back to baseline, no significant postictal status, so far he has five spells. Past History Past Medical History: other (HIEN/OHS, hypothyroid.) Past Surgical History: No surgical history Social history: no significant social history Family history: hypertension Medications and Allergies Allergies Allergy/AdvReac Type Severity Reaction Status Date / Time No Known Allergies Allergy Verified 06/22/13 00:50 Home Medications Medication Instructions Recorded Confirmed Last Taken Type No Known Home Medications [No 09/14/17 09/14/17 Unknown History Reported Home Medications] Active Meds: Active Medications Acetaminophen (Tylenol) 650 mg PO Q4H PRN PRN Reason: Pain MILD(1-3)/Fever >100.5/GARAY Last Admin: 09/14/17 20:23 Dose: 650 mg Albuterol (Proventil) 2.5 mg IH Q4HRT PRN PRN Reason: Shortness Of Breath Enoxaparin Sodium (Lovenox) 40 mg SUB-Q BID DALLIN Last Admin: 09/18/17 11:24 Dose: 40 mg Ondansetron HCl (Zofran) 4 mg IV Q8H PRN PRN Reason: Nausea And Vomiting Sodium Chloride (Sodium Chloride Flush Syringe 10 Ml) 10 ml IV PRN PRN PRN Reason: LINE FLUSH Review of Systems All systems: negative (increased body index. All other 10 points of systems are reviewed and negative.) Physical Examination - Vital Signs Vital Signs: Vital Signs Temp Pulse Resp BP Pulse Ox 98.5 F 113 H 18 151/88 94 09/13/17 23:33 09/13/17 23:33 09/13/17 23:33 09/13/17 23:33 09/13/17 23:33 - Constitutional General appearance: comfortable - EENT EENT: Present: PERRL, mucous membranes moist - Respiratory Respiratory: Present: chest non-tender, lungs clear - Cardiovascular Cardiovascular: Present: regular rate, no murmurs Extremities: Present: no peripheral edema bilatateraly, no clubbing, cyanosis - Gastrointestinal Gastrointestinal: Present: soft, non-tender, non-distended - Integumentary Integumentary: Present: normal - Neurologic Cranial nerve examination: PERRL, EOMI, face symmetric, tongue midline, intact Speech examination: intact Sensorimotor examination: intact Detailed motor examination: grossly full strength in Detailed sensory examination: intact Reflexes: 1+: ankle, bicep, knee, tricep - Psychiatric Psychiatric: Present: mood/affect appropriate Results - Laboratory Findings CBC and BMP: 09/17/17 03:53 09/17/17 03:53 Abnormal Lab Findings: Abnormal Labs 09/14/17 09/14/17 09/14/17 00:10 00:10 02:29 MCV Lymph % (Auto) 7.4 L [place] % (Auto) 15.7 H Lymph # 0.5 L [place] # 1.0 H Seg Neutrophils % 74.9 H Monocytes % (Manual) Lymphocytes # (Manual) Monocytes # (Manual) D-Dimer POC ABG pH POC ABG pCO2 POC ABG pO2 Sodium Chloride 96.0 L Carbon Dioxide 31 H Glucose 142 H POC Glucose Calcium 8.2 L Total Creatine Kinase 417 H CK-MB (CK-2) 4.1 H 09/14/17 09/14/17 09/14/17 04:14 08:26 11:53 MCV Lymph % (Auto) [place] % (Auto) Lymph # [place] # Seg Neutrophils % Monocytes % (Manual) Lymphocytes # (Manual) Monocytes # (Manual) D-Dimer 259.63 H POC ABG pH POC ABG pCO2 POC ABG pO2 Sodium Chloride Carbon Dioxide Glucose POC Glucose Calcium Total Creatine Kinase 764 H 769 H CK-MB (CK-2) 5.7 H 5.7 H 04/09/15/17 09/15/17 05:09 05:09 15:28 MCV 95 H Lymph % (Auto) [place] % (Auto) Lymph # [place] # Seg Neutrophils % Monocytes % (Manual) 21.0 H Lymphocytes # (Manual) 1.0 L Monocytes # (Manual) 1.3 H D-Dimer POC ABG pH 7.193 L POC ABG pCO2 92.3 H POC ABG pO2 56 L Sodium Chloride 94.9 L Carbon Dioxide 31 H Glucose 154 H POC Glucose Calcium 8.3 L Total Creatine Kinase CK-MB (CK-2) 09/15/17 09/15/17 09/15/17 15:34 16:13 17:58 MCV Lymph % (Auto) [place] % (Auto) Lymph # [place] # Seg Neutrophils % Monocytes % (Manual) Lymphocytes # (Manual) Monocytes # (Manual) D-Dimer POC ABG pH 7.241 L 7.257 L POC ABG pCO2 78.2 H 74.5 H POC ABG pO2 60 L 66 L Sodium Chloride Carbon Dioxide Glucose POC Glucose 159 H Calcium Total Creatine Kinase CK-MB (CK-2) 09/15/17 09/16/17 09/16/17 21:25 07:06 08:32 MCV Lymph % (Auto) [place] % (Auto) Lymph # [place] # Seg Neutrophils % Monocytes % (Manual) Lymphocytes # (Manual) Monocytes # (Manual) D-Dimer POC ABG pH 7.288 L POC ABG pCO2 71.4 H 60.4 H POC ABG pO2 79 L Sodium 136 L Chloride 91.9 L Carbon Dioxide 35 H Glucose 114 H POC Glucose Calcium 8.0 L Total Creatine Kinase CK-MB (CK-2) 09/17/17 03:53 MCV Lymph % (Auto) [place] % (Auto) Lymph # [place] # Seg Neutrophils % Monocytes % (Manual) Lymphocytes # (Manual) Monocytes # (Manual) D-Dimer POC ABG pH POC ABG pCO2 POC ABG pO2 Sodium 136 L Chloride 92.8 L Carbon Dioxide 35 H Glucose 101 H POC Glucose Calcium 8.2 L Total Creatine Kinase CK-MB (CK-2) Assessment and Plan 1. New onset seizure. Denied aura, minutes, then back to baseline, no bitten tongue, on incontinency, no loss control of bowel. He had eyes rolled back. Total five times per him. If he has seizure, probably focal with conscious impairment and secondary general. PRN Ativan. 2. Syncope as differential. Vasovagal v.s cardiogenic. Orthostatic vital sings and cardiology. 3. Brain MRI without contrast and EEG. 4. Don't drive a vehicle or operate heavy machinery for 6 months, always seizure precaution. 5. Chest pains. Cardiology. 6. Obesity. Exercise. 7. Plan discussed with him and his nurse. 8. 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 9. If D/C, F/U with neurology in 4-6 weeks.
--- NOTE | 2017-09-18 13:55 | Progress Note ---
Assessment and Plan Assessment and plan: Acute respiratory failure with hypercapnea. He was on BIPAP. Off BIPAP, now on Oxygen by [place] at 3l/min Pulm following. Patient will need Triology machine as per Pulmnonologist. I discussed with Case management. Sleep apnea. Was on CPAP at home. Repeat ABG shows improvement.. Syncope. Obtain Echocardiogram Seizures. Patient had seizures. MRI Brain ordered but could not be done because of body habitus. Get CT Head with contrast. Patient seen by Neurologist Hypothyroidism. Will obtain home med list. DVT prophylaxis with Lovenox. Full code status. History Interval history: Feels much better, Less shortness of breath, Off BIPAP Hospitalist Physical - Physical exam Narrative exam: General:Not in acute distress,morbidly obese, Off BIPAP HEENT:Normocephalic, atraumatic Lungs: Bilateral rhonchi, decreased breath sounds Heart:S1 and S2 regular, no murmurs, rubs or gallop Abd: soft, non tender, non distended, normal bowel sounds Ext:Bilateral lower ext edema, no clubbing or cyanosis Neuro:Awake,alert,oriented x 3, moves all extremities, Psych:Normal mood - Constitutional Vitals: Temp Pulse Resp BP Pulse Ox 97.4 F L 97 H 20 120/74 94 09/18/17 12:32 09/18/17 12:32 09/18/17 12:32 09/18/17 12:32 09/18/17 12:32 General appearance: Present: no acute distress Results - Labs CBC & Chem 7: 09/17/17 03:53 09/17/17 03:53 Labs: Laboratory Last Values WBC 6.6 K/mm3 (4.5-11.0) 09/17/17 03:53 RBC 4.24 M/mm3 (3.65-5.03) 09/17/17 03:53 Hgb 13.3 gm/dl (11.8-15.2) 09/17/17 03:53 Hct 39.6 % (35.5-45.6) 09/17/17 03:53 MCV 93 fl (84-94) 09/17/17 03:53 MCH 31 pg (28-32) 09/17/17 03:53 MCHC 34 % (32-34) 09/17/17 03:53 RDW 13.3 % (13.2-15.2) 09/17/17 03:53 Plt Count 169 K/mm3 (140-440) 09/17/17 03:53 Lymph % (Auto) 7.4 % (13.4-35.0) L 09/14/17 00:10 [place] % (Auto) Partition [place] 09/15/17 05:09 Eos % (Auto) 1.4 % (0.0-4.3) 09/14/17 00:10 Baso % (Auto) 0.6 % (0.0-1.8) 09/14/17 00:10 Lymph # 0.5 K/mm3 (1.2-5.4) L 09/14/17 00:10 [place] # 1.0 K/mm3 (0.0-0.8) H 09/14/17 00:10 Eos # 0.1 K/mm3 (0.0-0.4) 09/14/17 00:10 Baso # 0.0 K/mm3 (0.0-0.1) 09/14/17 00:10 Add Manual Diff Complete 09/15/17 05:09 Total Counted 100 09/15/17 05:09 Seg Neutrophils % 74.9 % (40.0-70.0) H 09/14/17 00:10 Seg Neuts % (Manual) 58.0 % (40.0-70.0) 09/15/17 05:09 Band Neutrophils % 4.0 % 09/15/17 05:09 Lymphocytes % (Manual) 17.0 % (13.4-35.0) 09/15/17 05:09 Reactive Lymphs % (Man) 0 % 09/15/17 05:09 Monocytes % (Manual) 21.0 % (0.0-7.3) H 09/15/17 05:09 Eosinophils % (Manual) 0 % (0.0-4.3) 09/15/17 05:09 Basophils % (Manual) 0 % (0.0-1.8) 09/15/17 05:09 Metamyelocytes % 0 % 09/15/17 05:09 Myelocytes % 0 % 09/15/17 05:09 Promyelocytes % 0 % 09/15/17 05:09 Blast Cells % 0 % 09/15/17 05:09 Nucleated RBC % Not Reportable 09/15/17 05:09 Seg Neutrophils # 4.6 K/mm3 (1.8-7.7) 09/14/17 00:10 Seg Neutrophils # Man 3.5 K/mm3 (1.8-7.7) 09/15/17 05:09 Band Neutrophils # 0.2 K/mm3 09/15/17 05:09 Lymphocytes # (Manual) 1.0 K/mm3 (1.2-5.4) L 09/15/17 05:09 Abs React Lymphs (Man) 0.0 K/mm3 09/15/17 05:09 Monocytes # (Manual) 1.3 K/mm3 (0.0-0.8) H 09/15/17 05:09 Eosinophils # (Manual) 0.0 K/mm3 (0.0-0.4) 09/15/17 05:09 Basophils # (Manual) 0.0 K/mm3 (0.0-0.1) 09/15/17 05:09 Metamyelocytes # 0.0 K/mm3 09/15/17 05:09 Myelocytes # 0.0 K/mm3 09/15/17 05:09 Promyelocytes # 0.0 K/mm3 09/15/17 05:09 Blast Cells # 0.0 K/mm3 09/15/17 05:09 WBC Morphology Not Reportable 09/15/17 05:09 Hypersegmented Neuts Not Reportable 09/15/17 05:09 Hyposegmented Neuts Not Reportable 09/15/17 05:09 Hypogranular Neuts Not Reportable 09/15/17 05:09 Smudge Cells Not Reportable 09/15/17 05:09 Toxic Granulation Not Reportable 09/15/17 05:09 Toxic Vacuolation Not Reportable 09/15/17 05:09 Dohle Bodies Not Reportable 09/15/17 05:09 Pelger-Huet Anomaly Not Reportable 09/15/17 05:09 Chely Rods Not Reportable 09/15/17 05:09 Platelet Estimate Consistent w auto 09/15/17 05:09 Clumped Platelets Not Reportable 09/15/17 05:09 Plt Clumps, EDTA Not Reportable 09/15/17 05:09 Large Platelets Not Reportable 09/15/17 05:09 Giant Platelets Not Reportable 09/15/17 05:09 Platelet Satelliting Not Reportable 09/15/17 05:09 Plt Morphology Comment Not Reportable 09/15/17 05:09 RBC Morphology Normal 09/15/17 05:09 Dimorphic RBCs Not Reportable 09/15/17 05:09 Polychromasia Not Reportable 09/15/17 05:09 Hypochromasia Not Reportable 09/15/17 05:09 Poikilocytosis Not Reportable 09/15/17 05:09 Anisocytosis Not Reportable 09/15/17 05:09 Microcytosis Not Reportable 09/15/17 05:09 Macrocytosis Not Reportable 09/15/17 05:09 Spherocytes Not Reportable 09/15/17 05:09 Pappenheimer Bodies Not Reportable 09/15/17 05:09 Sickle Cells Not Reportable 09/15/17 05:09 Target Cells Not Reportable 09/15/17 05:09 Tear Drop Cells Not Reportable 09/15/17 05:09 Ovalocytes Not Reportable 09/15/17 05:09 Helmet Cells Not Reportable 09/15/17 05:09 [place] Bodies Not Reportable 09/15/17 05:09 [place] Rings Not Reportable 09/15/17 05:09 Liana Cells Not Reportable 09/15/17 05:09 Bite Cells Not Reportable 09/15/17 05:09 Crenated Cell Not Reportable 09/15/17 05:09 Elliptocytes Not Reportable 09/15/17 05:09 Acanthocytes (Spur) Not Reportable 09/15/17 05:09 Rouleaux Not Reportable 09/15/17 05:09 Hemoglobin C Crystals Not Reportable 09/15/17 05:09 Schistocytes Not Reportable 09/15/17 05:09 Malaria parasites Not Reportable 09/15/17 05:09 Curt Bodies Not Reportable 09/15/17 05:09 Hem Pathologist Commnt No 09/15/17 05:09 D-Dimer 259.63 ng/mlDDU (0-234) H 09/14/17 04:14 POC ABG pH 7.366 (7.35-7.45) 09/16/17 08:32 POC ABG pCO2 60.4 (35-45) H 09/16/17 08:32 POC ABG pO2 79 (80-105) L 09/16/17 08:32 POC ABG HCO3 34.6 09/16/17 08:32 POC ABG Total CO2 36 09/16/17 08:32 POC ABG O2 Sat 95 09/16/17 08:32 POC ABG Base Excess 9 09/16/17 08:32 FiO2 60 % 09/16/17 08:32 Sodium 136 mmol/L (137-145) L 09/17/17 03:53 Potassium 4.8 mmol/L (3.6-5.0) 09/17/17 03:53 Chloride 92.8 mmol/L (98-107) L 09/17/17 03:53 Carbon Dioxide 35 mmol/L (22-30) H 09/17/17 03:53 Anion Gap 13 mmol/L 09/17/17 03:53 BUN 16 mg/dL (9-20) 09/17/17 03:53 Creatinine 1.2 mg/dL (0.8-1.5) 09/17/17 03:53 Estimated GFR > 60 ml/min 09/17/17 03:53 BUN/Creatinine Ratio 13 % 09/17/17 03:53 Glucose 101 mg/dL (75-100) H 09/17/17 03:53 POC Glucose 159 (70-105) H 09/15/17 15:34 Calcium 8.2 mg/dL (8.4-10.2) L 09/17/17 03:53 Magnesium 1.70 mg/dL (1.7-2.3) 09/14/17 02:30 Total Bilirubin 0.30 mg/dL (0.1-1.2) 09/14/17 00:10 AST 23 units/L (5-40) 09/14/17 00:10 ALT 31 units/L (7-56) 09/14/17 00:10 Alkaline Phosphatase 67 units/L (35-129) 09/14/17 00:10 Total Creatine Kinase 769 units/L (55-170) H 09/14/17 11:53 CK-MB (CK-2) 5.7 ng/mL (0.0-4.0) H 09/14/17 11:53 CK-MB (CK-2) Rel Index 0.7 (0-4) 09/14/17 11:53 Troponin T < 0.010 ng/mL (0.00-0.029) 09/14/17 23:38 NT-Pro-B Natriuret Pep 65.31 pg/mL (0-450) 09/16/17 07:06 Total Protein 6.8 g/dL (6.3-8.2) 09/14/17 00:10 Albumin 3.9 g/dL (3.9-5) 09/14/17 00:10 Albumin/Globulin Ratio 1.3 % 09/14/17 00:10 Urine Opiates Screen Presumptive negative 09/16/17 16:06 Urine Methadone Screen Presumptive negative 09/16/17 16:06 Ur Barbiturates Screen Presumptive negative 09/16/17 16:06 Ur Phencyclidine Scrn Presumptive negative 09/16/17 16:06 Ur Amphetamines Screen Presumptive negative 09/16/17 16:06 U Benzodiazepines Scrn Presumptive negative 09/16/17 16:06 Urine Cocaine Screen Presumptive negative 09/16/17 16:06 U Marijuana (THC) Screen Presumptive negative 09/16/17 16:06 Drugs of Abuse Note Disclamer 09/16/17 16:06
--- NOTE | 2017-09-18 17:35 | Cat Scan Report ---
FINAL REPORT EXAM: CT HEAD/BRAIN HISTORY: seizures TECHNIQUE: CT examination of the head without IV contrast PRIORS: 09/14/2017 FINDINGS: Moderate mucosal thickening both ethmoid and maxillary sinuses. Nonspecific small fluid level left maxillary sinus. Slight mucosal thickening sphenoid and frontal sinuses. Clear mastoid air cells and middle ear cavities. Bone windows demonstrate no acute fracture. The brain is without mass, mass effect, hemorrhage, or acute infarct. There is no extra-axial intracranial bleed, brain bleed, or midline shift. The ventricles and sulci are age-appropriate. IMPRESSION: No acute CVA, intracranial bleed, or brain mass Multifocal paranasal sinus disease. Small fluid level in left maxillary sinus may reflect acute sinusitis
[2017-09-18] MEDS: TYLENOL PO PRN (18:45)
[2017-09-19] MEDS: LOVENOX SUB-Q SCH ×2 (09:48→22:17)
--- NOTE | 2017-09-19 14:01 | Progress Note ---
Assessment and Plan Assessment and plan: Acute respiratory failure with hypercapnea. He was on BIPAP. Off BIPAP, now on Oxygen by NC at 2l/min with Oxygen sat 93% Pulm following. Patient will need Triology machine as per Pulmnonologist. I discussed with Case management. Sleep apnea. Was on CPAP at home. Repeat ABG shows improvement.. Syncope. Obtain Echocardiogram Seizures. Patient had seizures. MRI Brain ordered but could not be done because of body habitus. CT Head with contrast negative for stroke or mass. EEG done report pending Patient seen by Neurologist Hypothyroidism. Will obtain home med list. DVT prophylaxis with Lovenox. Full code status. History Interval history: Feels much better, Less shortness of breath, No more seizures Hospitalist Physical - Physical exam Narrative exam: General:Not in acute distress,morbidly obese, Off BIPAP HEENT:Normocephalic, atraumatic Neck:Supple, no JVD Lungs: Bilateral rhonchi, decreased breath sounds Heart:S1 and S2 regular, no murmurs, rubs or gallop Abd: soft, non tender, non distended, normal bowel sounds Ext:Bilateral lower ext edema, no clubbing or cyanosis Neuro:Awake,alert,oriented x 3, moves all extremities, Psych:Normal mood - Constitutional Vitals: Temp Pulse Resp BP Pulse Ox 97.6 F 95 H 20 121/78 93 09/19/17 07:01 09/19/17 08:05 09/19/17 07:01 09/19/17 07:01 09/19/17 08:30 General appearance: Present: no acute distress Results - Labs CBC & Chem 7: 09/17/17 03:53 09/17/17 03:53 Labs: Laboratory Last Values WBC 6.6 K/mm3 (4.5-11.0) 09/17/17 03:53 RBC 4.24 M/mm3 (3.65-5.03) 09/17/17 03:53 Hgb 13.3 gm/dl (11.8-15.2) 09/17/17 03:53 Hct 39.6 % (35.5-45.6) 09/17/17 03:53 MCV 93 fl (84-94) 09/17/17 03:53 MCH 31 pg (28-32) 09/17/17 03:53 MCHC 34 % (32-34) 09/17/17 03:53 RDW 13.3 % (13.2-15.2) 09/17/17 03:53 Plt Count 169 K/mm3 (140-440) 09/17/17 03:53 Lymph % (Auto) 7.4 % (13.4-35.0) L 09/14/17 00:10 [place] % (Auto) Fruit Sorter 09/15/17 05:09 Eos % (Auto) 1.4 % (0.0-4.3) 09/14/17 00:10 Baso % (Auto) 0.6 % (0.0-1.8) 09/14/17 00:10 Lymph # 0.5 K/mm3 (1.2-5.4) L 09/14/17 00:10 [place] # 1.0 K/mm3 (0.0-0.8) H 09/14/17 00:10 Eos # 0.1 K/mm3 (0.0-0.4) 09/14/17 00:10 Baso # 0.0 K/mm3 (0.0-0.1) 09/14/17 00:10 Add Manual Diff Complete 09/15/17 05:09 Total Counted 100 09/15/17 05:09 Seg Neutrophils % 74.9 % (40.0-70.0) H 09/14/17 00:10 Seg Neuts % (Manual) 58.0 % (40.0-70.0) 09/15/17 05:09 Band Neutrophils % 4.0 % 09/15/17 05:09 Lymphocytes % (Manual) 17.0 % (13.4-35.0) 09/15/17 05:09 Reactive Lymphs % (Man) 0 % 09/15/17 05:09 Monocytes % (Manual) 21.0 % (0.0-7.3) H 09/15/17 05:09 Eosinophils % (Manual) 0 % (0.0-4.3) 09/15/17 05:09 Basophils % (Manual) 0 % (0.0-1.8) 09/15/17 05:09 Metamyelocytes % 0 % 09/15/17 05:09 Myelocytes % 0 % 09/15/17 05:09 Promyelocytes % 0 % 09/15/17 05:09 Blast Cells % 0 % 09/15/17 05:09 Nucleated RBC % Not Reportable 09/15/17 05:09 Seg Neutrophils # 4.6 K/mm3 (1.8-7.7) 09/14/17 00:10 Seg Neutrophils # Man 3.5 K/mm3 (1.8-7.7) 09/15/17 05:09 Band Neutrophils # 0.2 K/mm3 09/15/17 05:09 Lymphocytes # (Manual) 1.0 K/mm3 (1.2-5.4) L 09/15/17 05:09 Abs React Lymphs (Man) 0.0 K/mm3 09/15/17 05:09 Monocytes # (Manual) 1.3 K/mm3 (0.0-0.8) H 09/15/17 05:09 Eosinophils # (Manual) 0.0 K/mm3 (0.0-0.4) 09/15/17 05:09 Basophils # (Manual) 0.0 K/mm3 (0.0-0.1) 09/15/17 05:09 Metamyelocytes # 0.0 K/mm3 09/15/17 05:09 Myelocytes # 0.0 K/mm3 09/15/17 05:09 Promyelocytes # 0.0 K/mm3 09/15/17 05:09 Blast Cells # 0.0 K/mm3 09/15/17 05:09 WBC Morphology Not Reportable 09/15/17 05:09 Hypersegmented Neuts Not Reportable 09/15/17 05:09 Hyposegmented Neuts Not Reportable 09/15/17 05:09 Hypogranular Neuts Not Reportable 09/15/17 05:09 Smudge Cells Not Reportable 09/15/17 05:09 Toxic Granulation Not Reportable 09/15/17 05:09 Toxic Vacuolation Not Reportable 09/15/17 05:09 Dohle Bodies Not Reportable 09/15/17 05:09 Pelger-Huet Anomaly Not Reportable 09/15/17 05:09 Chely Rods Not Reportable 09/15/17 05:09 Platelet Estimate Consistent w auto 09/15/17 05:09 Clumped Platelets Not Reportable 09/15/17 05:09 Plt Clumps, EDTA Not Reportable 09/15/17 05:09 Large Platelets Not Reportable 09/15/17 05:09 Giant Platelets Not Reportable 09/15/17 05:09 Platelet Satelliting Not Reportable 09/15/17 05:09 Plt Morphology Comment Not Reportable 09/15/17 05:09 RBC Morphology Normal 09/15/17 05:09 Dimorphic RBCs Not Reportable 09/15/17 05:09 Polychromasia Not Reportable 09/15/17 05:09 Hypochromasia Not Reportable 09/15/17 05:09 Poikilocytosis Not Reportable 09/15/17 05:09 Anisocytosis Not Reportable 09/15/17 05:09 Microcytosis Not Reportable 09/15/17 05:09 Macrocytosis Not Reportable 09/15/17 05:09 Spherocytes Not Reportable 09/15/17 05:09 Pappenheimer Bodies Not Reportable 09/15/17 05:09 Sickle Cells Not Reportable 09/15/17 05:09 Target Cells Not Reportable 09/15/17 05:09 Tear Drop Cells Not Reportable 09/15/17 05:09 Ovalocytes Not Reportable 09/15/17 05:09 Helmet Cells Not Reportable 09/15/17 05:09 [place] Bodies Not Reportable 09/15/17 05:09 [place] Rings Not Reportable 09/15/17 05:09 [place] Cells Not Reportable 09/15/17 05:09 Bite Cells Not Reportable 09/15/17 05:09 Crenated Cell Not Reportable 09/15/17 05:09 Elliptocytes Not Reportable 09/15/17 05:09 Acanthocytes (Spur) Not Reportable 09/15/17 05:09 Rouleaux Not Reportable 09/15/17 05:09 Hemoglobin C Crystals Not Reportable 09/15/17 05:09 Schistocytes Not Reportable 09/15/17 05:09 Malaria parasites Not Reportable 09/15/17 05:09 Curt Bodies Not Reportable 09/15/17 05:09 Hem Pathologist Commnt No 09/15/17 05:09 D-Dimer 259.63 ng/mlDDU (0-234) H 09/14/17 04:14 POC ABG pH 7.366 (7.35-7.45) 09/16/17 08:32 POC ABG pCO2 60.4 (35-45) H 09/16/17 08:32 POC ABG pO2 79 (80-105) L 09/16/17 08:32 POC ABG HCO3 34.6 09/16/17 08:32 POC ABG Total CO2 36 09/16/17 08:32 POC ABG O2 Sat 95 09/16/17 08:32 POC ABG Base Excess 9 09/16/17 08:32 FiO2 60 % 09/16/17 08:32 Sodium 136 mmol/L (137-145) L 09/17/17 03:53 Potassium 4.8 mmol/L (3.6-5.0) 09/17/17 03:53 Chloride 92.8 mmol/L (98-107) L 09/17/17 03:53 Carbon Dioxide 35 mmol/L (22-30) H 09/17/17 03:53 Anion Gap 13 mmol/L 09/17/17 03:53 BUN 16 mg/dL (9-20) 09/17/17 03:53 Creatinine 1.2 mg/dL (0.8-1.5) 09/17/17 03:53 Estimated GFR > 60 ml/min 09/17/17 03:53 BUN/Creatinine Ratio 13 % 09/17/17 03:53 Glucose 101 mg/dL (75-100) H 09/17/17 03:53 POC Glucose 159 (70-105) H 09/15/17 15:34 Calcium 8.2 mg/dL (8.4-10.2) L 09/17/17 03:53 Magnesium 1.70 mg/dL (1.7-2.3) 09/14/17 02:30 Total Bilirubin 0.30 mg/dL (0.1-1.2) 09/14/17 00:10 AST 23 units/L (5-40) 09/14/17 00:10 ALT 31 units/L (7-56) 09/14/17 00:10 Alkaline Phosphatase 67 units/L (35-129) 09/14/17 00:10 Total Creatine Kinase 769 units/L (55-170) H 09/14/17 11:53 CK-MB (CK-2) 5.7 ng/mL (0.0-4.0) H 09/14/17 11:53 CK-MB (CK-2) Rel Index 0.7 (0-4) 09/14/17 11:53 Troponin T < 0.010 ng/mL (0.00-0.029) 09/14/17 23:38 NT-Pro-B Natriuret Pep 65.31 pg/mL (0-450) 09/16/17 07:06 Total Protein 6.8 g/dL (6.3-8.2) 09/14/17 00:10 Albumin 3.9 g/dL (3.9-5) 09/14/17 00:10 Albumin/Globulin Ratio 1.3 % 09/14/17 00:10 Urine Opiates Screen Presumptive negative 09/16/17 16:06 Urine Methadone Screen Presumptive negative 09/16/17 16:06 Ur Barbiturates Screen Presumptive negative 09/16/17 16:06 Ur Phencyclidine Scrn Presumptive negative 09/16/17 16:06 Ur Amphetamines Screen Presumptive negative 09/16/17 16:06 U Benzodiazepines Scrn Presumptive negative 09/16/17 16:06 Urine Cocaine Screen Presumptive negative 09/16/17 16:06 U Marijuana (THC) Screen Presumptive negative 09/16/17 16:06 Drugs of Abuse Note Disclamer 09/16/17 16:06
[2017-09-20] MEDS: LOVENOX SUB-Q SCH ×2 (10:39→21:52)
--- NOTE | 2017-09-20 10:56 | Progress Note ---
Assessment and Plan Assessment and plan: Acute respiratory failure with hypercapnea. He was on BIPAP. Off BIPAP, now on Oxygen by NC at 2l/min with Oxygen sat 93% Pulm following. Patient will need Trilogy machine as per Vice President Process. I discussed with Case management. Sleep apnea. Was on CPAP at home. Repeat ABG shows improvement.. Syncope. Obtain Echocardiogram Seizures. Patient had seizures. MRI Brain ordered but could not be done because of body habitus. CT Head with contrast negative for stroke or mass. EEG done report pending Patient was evaluated by Neurologist Hypothyroidism. DVT prophylaxis with Lovenox. Full code status. History Interval history: Feels much better, Less shortness of breath, No more seizures Hospitalist Physical - Physical exam Narrative exam: General:Not in acute distress,morbidly obese, Off BIPAP HEENT:Normocephalic, atraumatic Neck:Supple, no JVD Lungs: Bilateral rhonchi, decreased breath sounds Heart:S1 and S2 regular, no murmurs, rubs or gallop Abd: soft, non tender, non distended, normal bowel sounds Ext:Bilateral lower ext edema, no clubbing or cyanosis Neuro:Awake,alert,oriented x 3, moves all extremities, Psych:Normal mood - Constitutional Vitals: Temp Pulse Resp BP Pulse Ox 98.0 F 87 22 119/71 90 09/20/17 08:53 09/20/17 08:53 09/20/17 08:53 09/20/17 08:53 09/20/17 08:53 General appearance: Present: no acute distress Results - Labs CBC & Chem 7: 09/17/17 03:53 09/17/17 03:53 Labs: Laboratory Last Values WBC 6.6 K/mm3 (4.5-11.0) 09/17/17 03:53 RBC 4.24 M/mm3 (3.65-5.03) 09/17/17 03:53 Hgb 13.3 gm/dl (11.8-15.2) 09/17/17 03:53 Hct 39.6 % (35.5-45.6) 09/17/17 03:53 MCV 93 fl (84-94) 09/17/17 03:53 MCH 31 pg (28-32) 09/17/17 03:53 MCHC 34 % (32-34) 09/17/17 03:53 RDW 13.3 % (13.2-15.2) 09/17/17 03:53 Plt Count 169 K/mm3 (140-440) 09/17/17 03:53 Lymph % (Auto) 7.4 % (13.4-35.0) L 09/14/17 00:10 [place] % (Auto) Rod Buster 09/15/17 05:09 Eos % (Auto) 1.4 % (0.0-4.3) 09/14/17 00:10 Baso % (Auto) 0.6 % (0.0-1.8) 09/14/17 00:10 Lymph # 0.5 K/mm3 (1.2-5.4) L 09/14/17 00:10 [place] # 1.0 K/mm3 (0.0-0.8) H 09/14/17 00:10 Eos # 0.1 K/mm3 (0.0-0.4) 09/14/17 00:10 Baso # 0.0 K/mm3 (0.0-0.1) 09/14/17 00:10 Add Manual Diff Complete 09/15/17 05:09 Total Counted 100 09/15/17 05:09 Seg Neutrophils % 74.9 % (40.0-70.0) H 09/14/17 00:10 Seg Neuts % (Manual) 58.0 % (40.0-70.0) 09/15/17 05:09 Band Neutrophils % 4.0 % 09/15/17 05:09 Lymphocytes % (Manual) 17.0 % (13.4-35.0) 09/15/17 05:09 Reactive Lymphs % (Man) 0 % 09/15/17 05:09 Monocytes % (Manual) 21.0 % (0.0-7.3) H 09/15/17 05:09 Eosinophils % (Manual) 0 % (0.0-4.3) 09/15/17 05:09 Basophils % (Manual) 0 % (0.0-1.8) 09/15/17 05:09 Metamyelocytes % 0 % 09/15/17 05:09 Myelocytes % 0 % 09/15/17 05:09 Promyelocytes % 0 % 09/15/17 05:09 Blast Cells % 0 % 09/15/17 05:09 Nucleated RBC % Not Reportable 09/15/17 05:09 Seg Neutrophils # 4.6 K/mm3 (1.8-7.7) 09/14/17 00:10 Seg Neutrophils # Man 3.5 K/mm3 (1.8-7.7) 09/15/17 05:09 Band Neutrophils # 0.2 K/mm3 09/15/17 05:09 Lymphocytes # (Manual) 1.0 K/mm3 (1.2-5.4) L 09/15/17 05:09 Abs React Lymphs (Man) 0.0 K/mm3 09/15/17 05:09 Monocytes # (Manual) 1.3 K/mm3 (0.0-0.8) H 09/15/17 05:09 Eosinophils # (Manual) 0.0 K/mm3 (0.0-0.4) 09/15/17 05:09 Basophils # (Manual) 0.0 K/mm3 (0.0-0.1) 09/15/17 05:09 Metamyelocytes # 0.0 K/mm3 09/15/17 05:09 Myelocytes # 0.0 K/mm3 09/15/17 05:09 Promyelocytes # 0.0 K/mm3 09/15/17 05:09 Blast Cells # 0.0 K/mm3 09/15/17 05:09 WBC Morphology Not Reportable 09/15/17 05:09 Hypersegmented Neuts Not Reportable 09/15/17 05:09 Hyposegmented Neuts Not Reportable 09/15/17 05:09 Hypogranular Neuts Not Reportable 09/15/17 05:09 Smudge Cells Not Reportable 09/15/17 05:09 Toxic Granulation Not Reportable 09/15/17 05:09 Toxic Vacuolation Not Reportable 09/15/17 05:09 Dohle Bodies Not Reportable 09/15/17 05:09 Pelger-Huet Anomaly Not Reportable 09/15/17 05:09 Chely Rods Not Reportable 09/15/17 05:09 Platelet Estimate Consistent w auto 09/15/17 05:09 Clumped Platelets Not Reportable 09/15/17 05:09 Plt Clumps, EDTA Not Reportable 09/15/17 05:09 Large Platelets Not Reportable 09/15/17 05:09 Giant Platelets Not Reportable 09/15/17 05:09 Platelet Satelliting Not Reportable 09/15/17 05:09 Plt Morphology Comment Not Reportable 09/15/17 05:09 RBC Morphology Normal 09/15/17 05:09 Dimorphic RBCs Not Reportable 09/15/17 05:09 Polychromasia Not Reportable 09/15/17 05:09 Hypochromasia Not Reportable 09/15/17 05:09 Poikilocytosis Not Reportable 09/15/17 05:09 Anisocytosis Not Reportable 09/15/17 05:09 Microcytosis Not Reportable 09/15/17 05:09 Macrocytosis Not Reportable 09/15/17 05:09 Spherocytes Not Reportable 09/15/17 05:09 Pappenheimer Bodies Not Reportable 09/15/17 05:09 Sickle Cells Not Reportable 09/15/17 05:09 Target Cells Not Reportable 09/15/17 05:09 Tear Drop Cells Not Reportable 09/15/17 05:09 Ovalocytes Not Reportable 09/15/17 05:09 Helmet Cells Not Reportable 09/15/17 05:09 [place] Bodies Not Reportable 09/15/17 05:09 [place] Rings Not Reportable 09/15/17 05:09 [place] Cells Not Reportable 09/15/17 05:09 Bite Cells Not Reportable 09/15/17 05:09 Crenated Cell Not Reportable 09/15/17 05:09 Elliptocytes Not Reportable 09/15/17 05:09 Acanthocytes (Spur) Not Reportable 09/15/17 05:09 Rouleaux Not Reportable 09/15/17 05:09 Hemoglobin C Crystals Not Reportable 09/15/17 05:09 Schistocytes Not Reportable 09/15/17 05:09 Malaria parasites Not Reportable 09/15/17 05:09 Curt Bodies Not Reportable 09/15/17 05:09 Hem Pathologist Commnt No 09/15/17 05:09 D-Dimer 259.63 ng/mlDDU (0-234) H 09/14/17 04:14 POC ABG pH 7.366 (7.35-7.45) 09/16/17 08:32 POC ABG pCO2 60.4 (35-45) H 09/16/17 08:32 POC ABG pO2 79 (80-105) L 09/16/17 08:32 POC ABG HCO3 34.6 09/16/17 08:32 POC ABG Total CO2 36 09/16/17 08:32 POC ABG O2 Sat 95 09/16/17 08:32 POC ABG Base Excess 9 09/16/17 08:32 FiO2 60 % 09/16/17 08:32 Sodium 136 mmol/L (137-145) L 09/17/17 03:53 Potassium 4.8 mmol/L (3.6-5.0) 09/17/17 03:53 Chloride 92.8 mmol/L (98-107) L 09/17/17 03:53 Carbon Dioxide 35 mmol/L (22-30) H 09/17/17 03:53 Anion Gap 13 mmol/L 09/17/17 03:53 BUN 16 mg/dL (9-20) 09/17/17 03:53 Creatinine 1.2 mg/dL (0.8-1.5) 09/17/17 03:53 Estimated GFR > 60 ml/min 09/17/17 03:53 BUN/Creatinine Ratio 13 % 09/17/17 03:53 Glucose 101 mg/dL (75-100) H 09/17/17 03:53 POC Glucose 159 (70-105) H 09/15/17 15:34 Calcium 8.2 mg/dL (8.4-10.2) L 09/17/17 03:53 Magnesium 1.70 mg/dL (1.7-2.3) 09/14/17 02:30 Total Bilirubin 0.30 mg/dL (0.1-1.2) 09/14/17 00:10 AST 23 units/L (5-40) 09/14/17 00:10 ALT 31 units/L (7-56) 09/14/17 00:10 Alkaline Phosphatase 67 units/L (35-129) 09/14/17 00:10 Total Creatine Kinase 769 units/L (55-170) H 09/14/17 11:53 CK-MB (CK-2) 5.7 ng/mL (0.0-4.0) H 09/14/17 11:53 CK-MB (CK-2) Rel Index 0.7 (0-4) 09/14/17 11:53 Troponin T < 0.010 ng/mL (0.00-0.029) 09/14/17 23:38 NT-Pro-B Natriuret Pep 65.31 pg/mL (0-450) 09/16/17 07:06 Total Protein 6.8 g/dL (6.3-8.2) 09/14/17 00:10 Albumin 3.9 g/dL (3.9-5) 09/14/17 00:10 Albumin/Globulin Ratio 1.3 % 09/14/17 00:10 Urine Opiates Screen Presumptive negative 09/16/17 16:06 Urine Methadone Screen Presumptive negative 09/16/17 16:06 Ur Barbiturates Screen Presumptive negative 09/16/17 16:06 Ur Phencyclidine Scrn Presumptive negative 09/16/17 16:06 Ur Amphetamines Screen Presumptive negative 09/16/17 16:06 U Benzodiazepines Scrn Presumptive negative 09/16/17 16:06 Urine Cocaine Screen Presumptive negative 09/16/17 16:06 U Marijuana (THC) Screen Presumptive negative 09/16/17 16:06 Drugs of Abuse Note Disclamer 09/16/17 16:06
[2017-09-21] MEDS: LOVENOX SUB-Q SCH ×2 (09:40→21:26)
--- NOTE | 2017-09-21 11:01 | Progress Note ---
Assessment and Plan Assessment and plan: Acute respiratory failure with hypercapnea. He was on BIPAP. Off BIPAP, now on Oxygen by NC at 2l/min with Oxygen sat 93% Pulm following. Patient will need Trilogy machine as per Hydroelectric Plant Electrician. I discussed with Case management. Sleep apnea. Was on CPAP at home. . Syncope. Obtain Echocardiogram Seizures. Patient had seizures. MRI Brain ordered but could not be done because of body habitus. CT Head with contrast ordered but CT head with contrast was done, negative for stroke or mass. EEG done report pending Patient was evaluated by Neurologist, Dr. Carty Discussed with Dr. Quinn, neurologist today. He recommends CT Angio head, CT Angio neck and CT Head with contrast. He states EEG unremarkable. Hypothyroidism. DVT prophylaxis with Lovenox. Full code status. History Interval history: Feels much better, Less shortness of breath, No more seizures Hospitalist Physical - Physical exam Narrative exam: General:Not in acute distress,morbidly obese, Off BIPAP HEENT:Normocephalic, atraumatic Neck:Supple, no JVD Lungs: Bilateral rhonchi, decreased breath sounds Heart:S1 and S2 regular, no murmurs, rubs or gallop Abd: soft, non tender, non distended, normal bowel sounds Ext:Bilateral lower ext edema, no clubbing or cyanosis Neuro:Awake,alert,oriented x 3, moves all extremities, no focal signs Psych:Normal mood - Constitutional Vitals: Temp Pulse Resp BP Pulse Ox 97.7 F 96 H 22 122/63 90 09/21/17 07:21 09/21/17 08:52 09/21/17 08:52 09/21/17 07:21 09/21/17 07:21 General appearance: Present: no acute distress Results - Labs CBC & Chem 7: 09/17/17 03:53 09/17/17 03:53 Labs: Laboratory Last Values WBC 6.6 K/mm3 (4.5-11.0) 09/17/17 03:53 RBC 4.24 M/mm3 (3.65-5.03) 09/17/17 03:53 Hgb 13.3 gm/dl (11.8-15.2) 09/17/17 03:53 Hct 39.6 % (35.5-45.6) 09/17/17 03:53 MCV 93 fl (84-94) 09/17/17 03:53 MCH 31 pg (28-32) 09/17/17 03:53 MCHC 34 % (32-34) 09/17/17 03:53 RDW 13.3 % (13.2-15.2) 09/17/17 03:53 Plt Count 169 K/mm3 (140-440) 09/17/17 03:53 Lymph % (Auto) 7.4 % (13.4-35.0) L 09/14/17 00:10 [place] % (Auto) Mock Up Assembler 09/15/17 05:09 Eos % (Auto) 1.4 % (0.0-4.3) 09/14/17 00:10 Baso % (Auto) 0.6 % (0.0-1.8) 09/14/17 00:10 Lymph # 0.5 K/mm3 (1.2-5.4) L 09/14/17 00:10 [place] # 1.0 K/mm3 (0.0-0.8) H 09/14/17 00:10 Eos # 0.1 K/mm3 (0.0-0.4) 09/14/17 00:10 Baso # 0.0 K/mm3 (0.0-0.1) 09/14/17 00:10 Add Manual Diff Complete 09/15/17 05:09 Total Counted 100 09/15/17 05:09 Seg Neutrophils % 74.9 % (40.0-70.0) H 09/14/17 00:10 Seg Neuts % (Manual) 58.0 % (40.0-70.0) 09/15/17 05:09 Band Neutrophils % 4.0 % 09/15/17 05:09 Lymphocytes % (Manual) 17.0 % (13.4-35.0) 09/15/17 05:09 Reactive Lymphs % (Man) 0 % 09/15/17 05:09 Monocytes % (Manual) 21.0 % (0.0-7.3) H 09/15/17 05:09 Eosinophils % (Manual) 0 % (0.0-4.3) 09/15/17 05:09 Basophils % (Manual) 0 % (0.0-1.8) 09/15/17 05:09 Metamyelocytes % 0 % 09/15/17 05:09 Myelocytes % 0 % 09/15/17 05:09 Promyelocytes % 0 % 09/15/17 05:09 Blast Cells % 0 % 09/15/17 05:09 Nucleated RBC % Not Reportable 09/15/17 05:09 Seg Neutrophils # 4.6 K/mm3 (1.8-7.7) 09/14/17 00:10 Seg Neutrophils # Man 3.5 K/mm3 (1.8-7.7) 09/15/17 05:09 Band Neutrophils # 0.2 K/mm3 09/15/17 05:09 Lymphocytes # (Manual) 1.0 K/mm3 (1.2-5.4) L 09/15/17 05:09 Abs React Lymphs (Man) 0.0 K/mm3 09/15/17 05:09 Monocytes # (Manual) 1.3 K/mm3 (0.0-0.8) H 09/15/17 05:09 Eosinophils # (Manual) 0.0 K/mm3 (0.0-0.4) 09/15/17 05:09 Basophils # (Manual) 0.0 K/mm3 (0.0-0.1) 09/15/17 05:09 Metamyelocytes # 0.0 K/mm3 09/15/17 05:09 Myelocytes # 0.0 K/mm3 09/15/17 05:09 Promyelocytes # 0.0 K/mm3 09/15/17 05:09 Blast Cells # 0.0 K/mm3 09/15/17 05:09 WBC Morphology Not Reportable 09/15/17 05:09 Hypersegmented Neuts Not Reportable 09/15/17 05:09 Hyposegmented Neuts Not Reportable 09/15/17 05:09 Hypogranular Neuts Not Reportable 09/15/17 05:09 Smudge Cells Not Reportable 09/15/17 05:09 Toxic Granulation Not Reportable 09/15/17 05:09 Toxic Vacuolation Not Reportable 09/15/17 05:09 Dohle Bodies Not Reportable 09/15/17 05:09 Pelger-Huet Anomaly Not Reportable 09/15/17 05:09 Chely Rods Not Reportable 09/15/17 05:09 Platelet Estimate Consistent w auto 09/15/17 05:09 Clumped Platelets Not Reportable 09/15/17 05:09 Plt Clumps, EDTA Not Reportable 09/15/17 05:09 Large Platelets Not Reportable 09/15/17 05:09 Giant Platelets Not Reportable 09/15/17 05:09 Platelet Satelliting Not Reportable 09/15/17 05:09 Plt Morphology Comment Not Reportable 09/15/17 05:09 RBC Morphology Normal 09/15/17 05:09 Dimorphic RBCs Not Reportable 09/15/17 05:09 Polychromasia Not Reportable 09/15/17 05:09 Hypochromasia Not Reportable 09/15/17 05:09 Poikilocytosis Not Reportable 09/15/17 05:09 Anisocytosis Not Reportable 09/15/17 05:09 Microcytosis Not Reportable 09/15/17 05:09 Macrocytosis Not Reportable 09/15/17 05:09 Spherocytes Not Reportable 09/15/17 05:09 Pappenheimer Bodies Not Reportable 09/15/17 05:09 Sickle Cells Not Reportable 09/15/17 05:09 Target Cells Not Reportable 09/15/17 05:09 Tear Drop Cells Not Reportable 09/15/17 05:09 Ovalocytes Not Reportable 09/15/17 05:09 Helmet Cells Not Reportable 09/15/17 05:09 [place] Bodies Not Reportable 09/15/17 05:09 [place] Rings Not Reportable 09/15/17 05:09 [place] Cells Not Reportable 09/15/17 05:09 Bite Cells Not Reportable 09/15/17 05:09 Crenated Cell Not Reportable 09/15/17 05:09 Elliptocytes Not Reportable 09/15/17 05:09 Acanthocytes (Spur) Not Reportable 09/15/17 05:09 Rouleaux Not Reportable 09/15/17 05:09 Hemoglobin C Crystals Not Reportable 09/15/17 05:09 Schistocytes Not Reportable 09/15/17 05:09 Malaria parasites Not Reportable 09/15/17 05:09 Curt Bodies Not Reportable 09/15/17 05:09 Hem Pathologist Commnt No 09/15/17 05:09 D-Dimer 259.63 ng/mlDDU (0-234) H 09/14/17 04:14 POC ABG pH 7.366 (7.35-7.45) 09/16/17 08:32 POC ABG pCO2 60.4 (35-45) H 09/16/17 08:32 POC ABG pO2 79 (80-105) L 09/16/17 08:32 POC ABG HCO3 34.6 09/16/17 08:32 POC ABG Total CO2 36 09/16/17 08:32 POC ABG O2 Sat 95 09/16/17 08:32 POC ABG Base Excess 9 09/16/17 08:32 FiO2 60 % 09/16/17 08:32 Sodium 136 mmol/L (137-145) L 09/17/17 03:53 Potassium 4.8 mmol/L (3.6-5.0) 09/17/17 03:53 Chloride 92.8 mmol/L (98-107) L 09/17/17 03:53 Carbon Dioxide 35 mmol/L (22-30) H 09/17/17 03:53 Anion Gap 13 mmol/L 09/17/17 03:53 BUN 16 mg/dL (9-20) 09/17/17 03:53 Creatinine 1.2 mg/dL (0.8-1.5) 09/17/17 03:53 Estimated GFR > 60 ml/min 09/17/17 03:53 BUN/Creatinine Ratio 13 % 09/17/17 03:53 Glucose 101 mg/dL (75-100) H 09/17/17 03:53 POC Glucose 159 (70-105) H 09/15/17 15:34 Calcium 8.2 mg/dL (8.4-10.2) L 09/17/17 03:53 Magnesium 1.70 mg/dL (1.7-2.3) 09/14/17 02:30 Total Bilirubin 0.30 mg/dL (0.1-1.2) 09/14/17 00:10 AST 23 units/L (5-40) 09/14/17 00:10 ALT 31 units/L (7-56) 09/14/17 00:10 Alkaline Phosphatase 67 units/L (35-129) 09/14/17 00:10 Total Creatine Kinase 769 units/L (55-170) H 09/14/17 11:53 CK-MB (CK-2) 5.7 ng/mL (0.0-4.0) H 09/14/17 11:53 CK-MB (CK-2) Rel Index 0.7 (0-4) 09/14/17 11:53 Troponin T < 0.010 ng/mL (0.00-0.029) 09/14/17 23:38 NT-Pro-B Natriuret Pep 65.31 pg/mL (0-450) 09/16/17 07:06 Total Protein 6.8 g/dL (6.3-8.2) 09/14/17 00:10 Albumin 3.9 g/dL (3.9-5) 09/14/17 00:10 Albumin/Globulin Ratio 1.3 % 09/14/17 00:10 Urine Opiates Screen Presumptive negative 09/16/17 16:06 Urine Methadone Screen Presumptive negative 09/16/17 16:06 Ur Barbiturates Screen Presumptive negative 09/16/17 16:06 Ur Phencyclidine Scrn Presumptive negative 09/16/17 16:06 Ur Amphetamines Screen Presumptive negative 09/16/17 16:06 U Benzodiazepines Scrn Presumptive negative 09/16/17 16:06 Urine Cocaine Screen Presumptive negative 09/16/17 16:06 U Marijuana (THC) Screen Presumptive negative 09/16/17 16:06 Drugs of Abuse Note Disclamer 09/16/17 16:06
--- NOTE | 2017-09-21 12:03 | Electroencephalogram Report ---
Electroencephalogram EEG Date of exam: 09/18/17 Description: The waking background shows an appropriate organization with well-defined anterior posterior voltage and frequency gradients. Posteriorly, there is a well -developed alpha rhythm of [ ] Hz which is symmetrical and bilaterally reactive. Anteriorly, there is a pattern of lower voltage and slightly irregular theta and beta range frequencies. During drowsiness, there is attenuation of the background rhythms. The sleep background shows normal organization with well-formed sleep spindles and vertex waves which are synchronous and symmetrical. Throughout, the recording there are no epileptiform abnormalities, focal or lateralizing features, or significant interhemispheric findings. Interpretation: Preliminary reading by me of EEG is normal sleep/wake EEG.
--- NOTE | 2017-09-21 17:31 | Cat Scan Report ---
FINAL REPORT PROCEDURE: CT HEAD/BRAIN W CON TECHNIQUE: Computerized tomography of the head was performed following the IV injection of iodinated nonionic contrast. HISTORY: History is of seizure and syncope COMPARISON: Prior unenhanced CT scan of the brain 09/18/2017 TECHNICAL QUALITY: Satisfactory. FINDINGS: Brain: Brain density appears normal. No evidence of intracranial hemorrhage. No parenchymal hemorrhage, mass lesions or mass effect are seen. No abnormal extraxial fluid collects or masses are seen. Today's study is limited by some beam hardening artifact. No abnormal areas of enhancement are identified. Ventricles: Ventricles are normal size and are midline. Bone Windows: No evidence of skull fracture. Paranasal sinuses: Nodular mucosal thickening seen throughout the inferior aspect of the right maxillary sinus suggesting several mucous retention cysts and/or polyps. There is mild nodular mucosal thickening seen inferiorly in the left maxillary sinus. Air-fluid level previously visualized left maxillary sinus has resolved. There is some patchy mucosal disease scattered in several of the ethmoid air cells and minimally medially in the frontal sinuses. Sphenoid sinuses are clear with the exception of minimal mucosal thickening inferiorly laterally on the right and left.. Mastoid air cells: Clear IMPRESSION: No acute or focal intracranial abnormalities are identified. Paranasal sinus disease as described. Nodular mucosal thickening visualized as described in the maxillary sinuses right side greater than left. An air-fluid level previously seen in the left maxillary sinus is no longer visualized. Mucosal thickening and small amount of fluid in the right sphenoid sinus has nearly resolved.
--- NOTE | 2017-09-21 19:03 | Cat Scan Report ---
FINAL REPORT PROCEDURE: CT ANGIO NECK TECHNIQUE: Computerized tomographic angiography of the neck was performed after the IV injection of iodinated nonionic contrast including image processing. The image data was postprocessed using 2-dimensional multiplanar reformatted (MPR) and 3-dimensional (MIP and/or volume rendered) techniques. HISTORY: seizures COMPARISON: No prior studies are available for comparison. Note: Assessment of carotid artery stenosis is based on measurement of the distal internal carotid artery diameter as the denominator for stenosis calculations and the [place] Symptomatic Carotid Endarterectomy Trial (NASCET) stenosis criteria . CPT 3100F FINDINGS: Visualized portions of the aortic arch appear widely patent. The right and left common carotid arteries, the carotid bulbs and internal carotid arteries as well as the vertebral arteries appear widely patent. No evidence for occlusion or stenosis. No acute soft tissue abnormalities are identified. Nonspecific subcentimeter lymph nodes scattered in the neck. IMPRESSION: Carotid arteries and vertebral arteries appear widely patent. No acute abnormalities are seen within the neck.
--- NOTE | 2017-09-21 19:08 | Cat Scan Report ---
FINAL REPORT PROCEDURE: CT ANGIO HEAD TECHNIQUE: Computerized tomographic angiography of the head was performed during the IV injection of iodinated nonionic contrast including image processing. The image data was postprocessed using 2-dimensional multiplanar reformatted (MPR) and 3-dimensional (MIP and/or volume rendered) techniques. HISTORY: seizures COMPARISON: No prior studies are available for comparison. FINDINGS: The carotid siphons, the A1 segments, the anterior cerebral arteries and middle cerebral arteries as well as the peripheral branches show no focal abnormalities. No occlusion or stenosis visualized. Vertebral arteries, the basilar artery and posterior cerebral arteries appear widely patent. Patent posterior communicating arteries are present on the right. There is persistent circulation on the left, normal variant. No abnormal enhancing intracranial lesions are identified. No evidence of intracranial hemorrhage or abnormal extra-axial fluid collections. IMPRESSION: The anterior and the posterior circulation are intact and show no focal abnormalities.
[2017-09-22 08:23] VITALS: BP 118/76
[2017-09-22] MEDS: LOVENOX SUB-Q SCH (09:54)
--- NOTE | 2017-09-22 10:37 | Event Note ---
Date: 09/22/17 Since CTAs of head and neck are normal, would consider his seizures to be from acidosis. He does not need an antiepileptic drug unless they recur without acidosis. He still cannot drive for 6 months per State law. He may need a 30 day event monitor, which if he has other blackouts, might help prove they are vasovagal from cough syncope. Signing off.
--- NOTE | 2017-09-22 11:34 | Progress Note ---
Assessment and Plan Seizure episode. Resolved. Probably metabolic in origin, see neurology comments Acute on chronic respiratory acidosis. Obesity hypoventilation syndrome. Currently on noninvasive ventilation at night , well tolerated CHF Severe morbid obesity. Discussed diet management Recommendations Noninvasive ventilation light. The patient already had a Trilogy system delivered at home yesterday Weight reduction diet program Check need for oxygen support with the nighttime on room air Can see the patient in 2-3 weeks at the office level. Outpatient pulmonary/ sleep follow-up We'll sign off Subjective Date of service: 09/22/17 Principal diagnosis: Acute respiratory failure with Hypercapnia Objective Vital Signs - 12hr 09/22/17 09/22/17 09/22/17 03:46 07:50 08:22 Temperature 98.5 F 98.0 F Pulse Rate 76 83 Respiratory 24 19 Rate Blood Pressure 116/72 Blood Pressure 118/76 [Right] O2 Sat by Pulse 99 96 95 Oximetry Constitutional: no acute distress, alert, other Neck: supple (large in circumference), no JVD Effort: normal Ascultation: Bilateral: clear, diminished breath sounds Percussion: Bilateral: not dull Tactile fremitus: Bilateral: normal Cardiovascular: regular rate and rhythm Gastrointestinal: soft, non-tender, non-distended Integumentary: normal Extremities: anasarca Neurologic: normal mental status, non-focal exam Psychiatric: mood appropriate CBC and BMP: 09/17/17 03:53 09/17/17 03:53 ABG, PT/INR, D-dimer: ABG POC ABG pH 7.470 (7.35-7.45) H 09/22/17 11:06 POC ABG pCO2 41.3 (35-45) 09/22/17 11:06 POC ABG pO2 65 (80-105) L 09/22/17 11:06 POC ABG HCO3 30.1 09/22/17 11:06 POC ABG Total CO2 31 09/22/17 11:06 POC ABG O2 Sat 94 09/22/17 11:06 PT/INR, D-dimer D-Dimer 259.63 ng/mlDDU (0-234) H 09/14/17 04:14 Abnormal lab findings: Abnormal Labs 09/14/17 09/14/17 09/14/17 00:10 00:10 02:29 MCV Lymph % (Auto) 7.4 L [place] % (Auto) 15.7 H Lymph # 0.5 L [place] # 1.0 H Seg Neutrophils % 74.9 H Monocytes % (Manual) Lymphocytes # (Manual) Monocytes # (Manual) D-Dimer POC ABG pH POC ABG pCO2 POC ABG pO2 Sodium Chloride 96.0 L Carbon Dioxide 31 H Glucose 142 H POC Glucose Calcium 8.2 L Total Creatine Kinase 417 H CK-MB (CK-2) 4.1 H 09/14/17 09/14/17 09/14/17 04:14 08:26 11:53 MCV Lymph % (Auto) [place] % (Auto) Lymph # [place] # Seg Neutrophils % Monocytes % (Manual) Lymphocytes # (Manual) Monocytes # (Manual) D-Dimer 259.63 H POC ABG pH POC ABG pCO2 POC ABG pO2 Sodium Chloride Carbon Dioxide Glucose POC Glucose Calcium Total Creatine Kinase 764 H 769 H CK-MB (CK-2) 5.7 H 5.7 H 09/15/17 09/15/17 09/15/17 05:09 05:09 15:28 MCV 95 H Lymph % (Auto) [place] % (Auto) Lymph # [place] # Seg Neutrophils % Monocytes % (Manual) 21.0 H Lymphocytes # (Manual) 1.0 L Monocytes # (Manual) 1.3 H D-Dimer POC ABG pH 7.193 L POC ABG pCO2 92.3 H POC ABG pO2 56 L Sodium Chloride 94.9 L Carbon Dioxide 31 H Glucose 154 H POC Glucose Calcium 8.3 L Total Creatine Kinase CK-MB (CK-2) 09/15/17 09/15/17 09/15/17 15:34 16:13 17:58 MCV Lymph % (Auto) [place] % (Auto) Lymph # [place] # Seg Neutrophils % Monocytes % (Manual) Lymphocytes # (Manual) Monocytes # (Manual) D-Dimer POC ABG pH 7.241 L 7.257 L POC ABG pCO2 78.2 H 74.5 H POC ABG pO2 60 L 66 L Sodium Chloride Carbon Dioxide Glucose POC Glucose 159 H Calcium Total Creatine Kinase CK-MB (CK-2) 09/15/17 09/16/17 09/16/17 21:25 07:06 08:32 MCV Lymph % (Auto) [place] % (Auto) Lymph # [place] # Seg Neutrophils % Monocytes % (Manual) Lymphocytes # (Manual) Monocytes # (Manual) D-Dimer POC ABG pH 7.288 L POC ABG pCO2 71.4 H 60.4 H POC ABG pO2 79 L Sodium 136 L Chloride 91.9 L Carbon Dioxide 35 H Glucose 114 H POC Glucose Calcium 8.0 L Total Creatine Kinase CK-MB (CK-2) 09/17/17 09/22/17 03:53 11:06 MCV Lymph % (Auto) [place] % (Auto) Lymph # [place] # Seg Neutrophils % Monocytes % (Manual) Lymphocytes # (Manual) Monocytes # (Manual) D-Dimer POC ABG pH 7.470 H POC ABG pCO2 POC ABG pO2 65 L Sodium 136 L Chloride 92.8 L Carbon Dioxide 35 H Glucose 101 H POC Glucose Calcium 8.2 L Total Creatine Kinase CK-MB (CK-2)
--- NOTE | 2017-09-22 12:25 | Discharge Summary ---
Providers - Providers Date of Admission: 09/14/17 05:54 Date of discharge: 09/22/17 Attending physician: ROBERT GUTIERREZ 09/15/17 15:04 Consult to Physician [CONS] Routine Comment: Consulting Provider: CHIQUIS HICKS Physician Instructions: Reason For Exam: respiratory distress 09/18/17 09:01 Consult to Physician [CONS] Routine Comment: Consulting Provider: BERLIN VIEYRA Physician Instructions: Reason For Exam: seizures Primary care physician: PAVAN POTTER Hospitalization Condition: Fair Hospital course: 46 y/o male, presented to hospital with c/p syncope and new onset seizure episode. He was admitted to telemetry and CT head on admission showed no acute intracranial process. Patient then developed hypercapnic respiratory failure on floor. He required continous bipap therapy and transferred to ICU. Patient has h/o underlying diagnosis of HIEN/OHS on CPAP and is readily noncompliant with therapy at home. He was then weaned off from biPAP and transferred out from the ICU, pulmonary was following the patient and recommended trilogy at home which was arranged by the CM. Neurology was consulted for new onset seizure and recommended MRI brain which unfortunately could not be obtained for his body habitus. Neurologic been recommended to obtain CT head with contrast along with CT angiogram of head and neck. His all workup was negative for any acute stroke or mass in the brain or any vascular stenosis. Neurology recommended no antiepileptic medications on discharge. Patient was discharged home in stable condition. He will follow up with pulmonology in 2 weeks. Discharge diagnosis and management: /Acute respiratory failure with hypercapnea. -likley from obesity hypoventilation syndrom He required continuous BIPAP and then slowly weaned off Pulm was following the patient and recommended Trilogy instead of CPAP on discharge Case management was consulted and trology was arranged on discharge /Sleep apnea. Was on CPAP at home. . /Syncope. - Could be due to vasovagal versus brief postictal period from acute onset seizure -Preserved EF on 2d Echocardiogram - CT head showed no acute intracranial finding - CT head and neck with contrast was unremarkable /Seizures. - MRI Brain ordered but could not be done because of body habitus. CT Head without contrast was done, negative for stroke or mass. EEG done and no seizure-like on study Patient was evaluated by Neurologist, recommended CT Angio head, CT Angio neck and CT Head with contrast - all tests were obtained and was unremarkable Neurologic recommended no antiepileptic medication on discharge, patient cannot drive for 6 months per [place] state law /Hypothyroidism. - synthroid prescribed on discharge DVT prophylaxis with Lovenox. Hospitalist Physical General:Not in acute distress,morbidly obese, Off BIPAP HEENT:Normocephalic, atraumatic Neck:Supple, no JVD Lungs: Bilateral decreased breath sounds, no rhonchi Heart:S1 and S2 regular, no murmurs, rubs or gallop Abd: soft, non tender, non distended, normal bowel sounds Ext: Trace Bilateral lower ext edema, no clubbing or cyanosis Neuro:Awake,alert,oriented x 3, moves all extremities, no focal signs Psych:Normal mood Disposition: DC-01 TO HOME OR SELFCARE Time spent for discharge: 34 minutes Core Measure Documentation - Palliative Care Palliative Care/ Comfort Measures: Not Applicable - Core Measures Any of the following diagnoses?: none Exam - Constitutional Vitals: Temp Pulse Resp BP Pulse Ox 98.0 F 82 19 118/76 95 09/22/17 08:22 09/22/17 11:33 09/22/17 08:22 09/22/17 08:22 09/22/17 08:22 Plan Activity: advance as tolerated, other (no driving for 6 months) Weight Bearing Status: Weight Bear as Tolerated Diet: low fat, low salt Special Instructions: occupational therapy Additional Instructions: Follow up with pulmonology in 2 weeks in the oupt office. Follow up with: PAVAN POTTER MD [Primary Care Provider] - 3-5 Days Forms: Work/School Release Form Prescriptions: Levothyroxine Sodium [Synthroid] 300 mcg PO DAILY #30 tablet
== END 2017-09-22 14:24 | disposition home or self-care (01) | DRG 100 ==
LOC: ED 23:32 → 4A 09-14 05:54 → CC1 09-15 15:39 → 4A 09-17 13:43
PROVIDERS: ADMIT Internal Medicine; ATTEND Internal Medicine
PROC: 4A033R1 Measurement of Arterial Saturation, Peripheral, Percutaneous Approach (ICD-10-PCS; principal; 2017-09-15)
PROC: 5A09457 Assistance with Respiratory Ventilation, 24-96 Consecutive Hours, Continuous Positive Airway Pressure (ICD-10-PCS; 2017-09-15)
PROC: 5A09357 Assistance with Respiratory Ventilation, Less than 24 Consecutive Hours, Continuous Positive Airway Pressure (ICD-10-PCS; 2017-09-20)
DX: R56.9 Unspecified convulsions (principal); J96.02 Acute respiratory failure with hypercapnia; J96.01 Acute respiratory failure with hypoxia; J44.1 Chronic obstructive pulmonary disease with (acute) exacerbation; Z68.43 Body mass index [BMI] 50.0-59.9, adult; I50.20 Unspecified systolic (congestive) heart failure; E66.01 Morbid (severe) obesity due to excess calories; E03.9 Hypothyroidism, unspecified; M54.9 Dorsalgia, unspecified; G89.29 Other chronic pain; Z82.49 Family history of ischemic heart disease and other diseases of the circulatory system; G47.33 Obstructive sleep apnea (adult) (pediatric); R63.4 Abnormal weight loss
CPT/HCPCS: 36415; 36600; 70450; 70460; 70496; 70498; 71046; 71275; 80048; 80053; 80307; 82550; 82553; 82803; 82962; 83735; 83880; 84484; 85007; 85025; 85027; 85379; 93005; 93010; 93306; 94660; 94760; 95819; J1650; J1953; J2060; Q9967